=== PATIENT | male | born 1955 | race Two or more races ===

== ENCOUNTER 2023-01-02 13:19 | Inpatient (IN) | payer MEDICARE ==
[2023-01-02 15:54] LABS: Basophils % (A) 0 %; Eosinophils # (A) 0.1 k/uL (0-0.7); Eosinophils % (A) 1 %; HCT 27.7 % (39.0-53.0); HGB 9.4 gm/dL (13.0-17.5); Lymphocytes # (A) 2.4 k/uL (1.0-4.8); Lymphocytes % (A) 22 %; MCH 31.6 pg (25.0-35.0); MCHC 33.9 g/dL (31.0-37.0); MCV 93.3 fL (80.0-100.0); Mean Platelet Volume 8.4; Monocytes # (A) 0.6 k/uL (0-1.0); Monocytes % (A) 5 %; Neutrophils # (A) 7.7 k/uL (1.3-7.7); Neutrophils % (A) 70 %; Platelet Count 400 k/uL (150-450); RBC 2.97 m/uL (4.30-5.90); RDW 14.2 % (11.5-15.5); WBC 10.9 k/uL (3.8-10.6)
--- NOTE | 2023-01-02 15:58 | ED ---
Lower Extremity Injury HPI - General Chief Complaint: Extremity Injury, Lower Stated Complaint: Leg Infection Time Seen by Provider: 01/02/23 15:36 Source: patient Mode of arrival: ambulatory Limitations: no limitations - History of Present Illness Initial Comments: This patient is a 67-year-old man who presents evaluation of his left foot. The patient had been in the hospital with left lower extremity cellulitis. He was released on December 30, to continue taking oral medication. The patient states that he had gone to see his physician on Thursday and the oral antibiotics were stopped. He saw a visiting nurse today who felt that his left ankle ulcer required surgical debridement. The patient has not had fevers at home. No chest pain, dyspnea, palpitations. Onset/Timin -: week(s) Injury: Foot: Left Improves With: nothing Worsens With: nothing Associated Symptoms: swelling Treatments Prior to Arrival: bandage - Related Data Home Medications Medication Instructions Recorded Confirmed Acarbose [Precose] 50 mg PO TID 01/02/23 01/02/23 Aspirin EC [Ecotrin Low Dose] 81 mg PO DAILY 01/02/23 01/02/23 Cetirizine HCl [Zyrtec] 10 mg PO HS 01/02/23 01/02/23 Cholecalciferol [Vitamin D3 (125 125 mcg PO HS 01/02/23 01/02/23 Mcg = 5000 Iu)] Cinnamon Bark [Cinnamon] 500 mg PO BID 01/02/23 01/02/23 Docusate [Colace] 100 mg PO DAILY 01/02/23 01/02/23 Echinacea 760mg Capsule 1 cap PO DAILY 01/02/23 01/02/23 Elderberry Fruit [Elderberry] 350 mg PO HS 01/02/23 01/02/23 Desiree C 500mg Tab 500 mg PO DAILY 01/02/23 01/02/23 Furosemide [Lasix] 40 mg PO DAILY 01/02/23 01/02/23 Goldenseal 400mg Capsule 1 cap PO HS 01/02/23 01/02/23 Lisinopril-Hctz 20-12.5 mg 1 tab PO HS 01/02/23 01/02/23 [Zestoretic 20-12.5] Magnesium Oxide [Magnesium] 500 mg PO HS 01/02/23 01/02/23 Metoprolol Tartrate [Lopressor] 75 mg PO BID 01/02/23 01/02/23 Multivit-Min/FA/Lycopen/Lutein 1 tab PO DAILY 01/02/23 01/02/23 [Centrum Silver Tablet] Potassium Chloride [Klor-Con M10] 10 meq PO BID 01/02/23 01/02/23 Qunol Hitesh Co Q 10 1 tab PO DAILY 01/02/23 01/02/23 Saw [place] 500 mg PO DAILY 01/02/23 01/02/23 Super Beta Prostate Tablet 1 tab PO HS 01/02/23 01/02/23 Thiamine HCl [Vitamin B-1] 250 mg PO DAILY 01/02/23 01/02/23 Ultra [place]-3 935mg 1 cap PO HS 01/02/23 01/02/23 Vitamin B Complex 1 cap PO 01/02/23 01/02/23 Warfarin [Coumadin] 2.5 mg PO [place]@2100 01/02/23 01/02/23 Warfarin [Coumadin] 5 mg PO SUTUWETHFRSA@2100 01/02/23 01/02/23 gemfibroziL [Lopid] 600 mg PO BID 01/02/23 01/02/23 glipiZIDE XL [Glucotrol XL] 5 mg PO DAILY 01/02/23 01/02/23 metFORMIN HCL [Glucophage] 1,000 mg PO HS 01/02/23 01/02/23 polyethylene glycoL 3350 [Miralax] 17 gm PO DAILY PRN 01/02/23 01/02/23 sitaGLIPtin PHOS/metFORMIN HCL 1 tab PO DAILY 01/02/23 01/02/23 [Janumet 50-1,000 mg Tablet] Previous Rx's Medication Instructions Recorded Acetaminophen Tab [Tylenol] 650 mg PO Q6HR PRN tab 01/06/23 Doxycycline Hyclate 100 mg PO Q12H 10 Days #20 tab 01/06/23 Ferrous Sulfate [Iron (65 MG 325 mg PO BID-W/MEALS #60 tab 01/06/23 Elemental)] Pantoprazole [Protonix] 40 mg PO DAILY #30 tab 01/06/23 Allergies Allergy/AdvReac Type Severity Reaction Status Date / Time No Known Allergies Allergy Verified 01/02/23 16:28 Review of Systems ROS Statement: Those systems with pertinent positive or pertinent negative responses have been documented in the HPI. ROS Other: All systems not noted in ROS Statement are negative. Constitutional: Denies: fever, chills Respiratory: Denies: cough, dyspnea Cardiovascular: Denies: chest pain, palpitations Gastrointestinal: Denies: abdominal pain, vomiting Genitourinary: Denies: dysuria Musculoskeletal: Denies: back pain Skin: Reports: as per HPI Neurological: Denies: headache, weakness, numbness Past Medical History Past Medical History: Atrial Fibrillation, Diabetes Mellitus, Hypertension History of Any Multi-Drug Resistant Organisms: None Reported Past Surgical History: No Surgical Hx Reported Past Psychological History: No Psychological Hx Reported Smoking Status: Never smoker Past Alcohol Use History: None Reported Past Drug Use History: None Reported - Past Family History Father Family Medical History: No Reported History Additional Family Medical History / Comment(s): living age 93. healthy Mother Family Medical History: CVA/TIA General Exam Limitations: no limitations General appearance: alert, in no apparent distress Head exam: Present: atraumatic, normocephalic Eye exam: Present: normal appearance. Absent: scleral icterus, conjunctival injection Neck exam: Present: normal inspection Respiratory exam: Present: normal lung sounds bilaterally. Absent: respiratory distress, wheezes, rales, rhonchi, stridor Cardiovascular Exam: Present: regular rate, normal rhythm, normal heart sounds. Absent: systolic murmur, diastolic murmur, rubs, gallop GI/Abdominal exam: Present: soft. Absent: distended, tenderness, guarding, rebound, rigid, mass Extremities exam: Present: other (The patient has some edema of the left ankle and foot. There is an ulcer to the heel aspect of the ankle. There is no purulent discharge.) Neurological exam: Present: alert, motor sensory deficit Skin exam: Present: warm, dry, erythema, other (Stasis changes to the left lower extremity, see above) Course Vital Signs 01/02/23 01/02/23 01/02/23 14:15 15:34 17:45 Temperature 98.2 F 97.9 F 98.2 F Pulse Rate 90 89 85 Respiratory 18 17 17 Rate Blood Pressure 97/64 106/65 114/62 O2 Sat by Pulse 95 97 98 Oximetry 01/02/23 01/02/23 01/02/23 18:28 19:05 20:00 Temperature 98.0 F 97.8 F Pulse Rate 88 83 90 Respiratory 17 17 18 Rate Blood Pressure 105/72 104/63 113/77 O2 Sat by Pulse 98 95 98 Oximetry Medical Decision Making - Medical Decision Making This patient is 67-year-old man with infected left foot ulcer. The labs do reveal presence of continued leukocytosis. The patient currently off of antibiotics with some continued infection will admit to have IV consultation as well as surgery for possible debridement Was pt. sent in by a medical professional or institution (CHAVA Anand, CARPENTRY SUPERVISOR, urgent care, hospital, or shelter...) When possible be specific @ -I patient is sent by visiting nurse Did you speak to anyone other than the patient for history (EMS, parent, family, police, friend...)? What history was obtained from this source @ -[Patient's family did contribute to history Did you review nursing and triage notes (agree or disagree)? Why? @ -[I reviewed and agree with nursing and triage notes] Were old charts reviewed (outside hosp., previous admission, EMS record, old EKG, old radiological studies, urgent care reports/EKG's, shelter records)? Report findings @ -[No old charts were reviewed] Differential Diagnosis (chest pain, altered mental status, abdominal pain women, abdominal pain men, vaginal bleeding, weakness, fever, dyspnea, syncope, headache, dizziness, GI bleed, back pain, seizure, CVA, palpatations, mental health, musculoskeletal)? @ -[Differential diagnosis includes wound infection, cellulitis, vasculitis and other conditions EKG interpreted by me (3pts min.). @ -[As above] X-rays interpreted by me (1pt min.). @ -[None done] CT interpreted by me (1pt min.). @ -[None done] U/S interpreted by me (1pt. min.). @ -[None done] What testing was considered but not performed or refused? (CT, X-rays, U/S, labs)? Why? @ -[None] What meds were considered but not given or refused? Why? @ -[None] Did you discuss the management of the patient with other professionals (professionals i.e. CHAVA Anand, CARPENTRY SUPERVISOR, lab, RT, psych nurse, geriatric social worker, cathode builder, teacher, enforcement safety officer, family caseworker)? Give summary @ -Case is discussed with admitting physician Was smoking cessation discussed for >3mins.? @ -[No] Was critical care preformed (if so, how long)? @ -[No] Were there social determinants of health that impacted care today? How? (Homelessness, low income, unemployed, alcoholism, drug addiction, transportation, low edu. Level, literacy, decrease access to med. care, nursing home, rehab)? @ -[No] Was there de-escalation of care discussed even if they declined (Discuss DNR or withdrawal of care, Hospice)? DNR status @ -[No] What co-morbidities impacted this encounter? (DM, HTN, Smoking, COPD, CAD, Canc er, CVA, ARF, Chemo, Hep., AIDS, mental health diagnosis, sleep apnea, morbid obesity)? @ -[None] Was patient admitted / discharged? Hospital course, mention meds given and route, prescriptions, significant lab abnormalities, going to OR and other pertinent info. @ -[Patient be admitted to have IV antibiotic coverage as well as surgical con sultation for possible debridement Undiagnosed new problem with uncertain prognosis? @ -[No] Drug Therapy requiring intensive monitoring for toxicity (Heparin, Nitro, Insulin, Cardizem)? @ -[No] Were any procedures done? @ -[No] Diagnosis/symptom? @ -[Leg cellulitis versus wound infection Acute, or Chronic, or Acute on Chronic? @ -[Acute Uncomplicated (without systemic symptoms) or Complicated (systemic symptoms)? @ -Uncomplicated Side effects of treatment? @ -[No] Exacerbation, Progression, or Severe Exacerbation? @ -[No] Poses a threat to life or bodily function? How? (Chest pain, [place], [place], pneumonia, PE, COPD, DKA, ARF, appy, cholecystitis, CVA, Diverticulitis, Homicidal, Suicidal, threat to staff... and all critical care pts) @ -[Worsening cellulitis/wound infection may progress to sepsis/ - Lab Data Result diagrams: 01/06/23 05:40 01/05/23 12:49 Lab Results 01/02/23 01/02/23 01/02/23 Range/Units 15:42 15:42 15:42 WBC 10.9 H (3.8-10.6) k/uL RBC 2.97 L (4.30-5.90) m/uL Hgb 9.4 L (13.0-17.5) gm/dL Hct 27.7 L (39.0-53.0) % MCV 93.3 (80.0-100.0) fL MCH 31.6 (25.0-35.0) pg MCHC 33.9 (31.0-37.0) g/dL RDW 14.2 (11.5-15.5) % Plt Count 400 (150-450) k/uL MPV 8.4 Immature Gran % (Auto) % Absolute Nucleated RBC % Neutrophils % 70 % Lymphocytes % 22 % Monocytes % 5 % Eosinophils % 1 % Basophils % 0 % Immature Gran # X 10*3/uL Neutrophils # 7.7 (1.3-7.7) k/uL Lymphocytes # 2.4 (1.0-4.8) k/uL Monocytes # 0.6 (0-1.0) k/uL Eosinophils # 0.1 (0-0.7) k/uL Basophils # 0.0 (0-0.2) k/uL NRBC/100 WBC Diff (0.00-0.01) X 10*3/uL PT (9.0-12.0) sec INR (<1.2) Sodium 135 L (137-145) mmol/L Potassium 4.6 (3.5-5.1) mmol/L Chloride 98 (98-107) mmol/L Carbon Dioxide 23 (22-30) mmol/L Anion Gap 14 mmol/L BUN 66 H (9-20) mg/dL Creatinine 1.23 (0.66-1.25) mg/dL Est GFR (CKD-EPI)AfAm 69 (>60 ml/min/1.73 sqM) Est GFR (CKD-EPI)NonAf 60 (>60 ml/min/1.73 sqM) Glucose 167 H (74-99) mg/dL POC Glucose (mg/dL) (70-110) mg/dL POC Glu Student ID Lactic Ac Sepsis Rflx Plasma Lactic Acid Evans 2.3 H* (0.7-2.0) mmol/L Calcium 10.1 (8.4-10.2) mg/dL Total Bilirubin 0.3 (0.2-1.3) mg/dL AST 21 (17-59) U/L ALT 17 (4-49) U/L Alkaline Phosphatase 71 (38-126) U/L C-Reactive Protein 1.7 H (<1.0) mg/dL Total Protein 7.8 (6.3-8.2) g/dL Albumin 4.0 (3.5-5.0) g/dL 01/02/23 01/02/23 01/02/23 Range/Units 16:13 18:24 20:14 WBC (3.8-10.6) k/uL RBC (4.30-5.90) m/uL Hgb (13.0-17.5) gm/dL Hct (39.0-53.0) % MCV (80.0-100.0) fL MCH (25.0-35.0) pg MCHC (31.0-37.0) g/dL RDW (11.5-15.5) % Plt Count (150-450) k/uL MPV Immature Gran % (Auto) % Absolute Nucleated RBC % Neutrophils % % Lymphocytes % % Monocytes % % Eosinophils % % Basophils % % Immature Gran # X 10*3/uL Neutrophils # (1.3-7.7) k/uL Lymphocytes # (1.0-4.8) k/uL Monocytes # (0-1.0) k/uL Eosinophils # (0-0.7) k/uL Basophils # (0-0.2) k/uL NRBC/100 WBC Diff (0.00-0.01) X 10*3/uL PT 30.7 H (9.0-12.0) sec INR 3.1 H (<1.2) Sodium (137-145) mmol/L Potassium (3.5-5.1) mmol/L Chloride (98-107) mmol/L Carbon Dioxide (22-30) mmol/L Anion Gap mmol/L BUN (9-20) mg/dL Creatinine (0.66-1.25) mg/dL Est GFR (CKD-EPI)AfAm (>60 ml/min/1.73 sqM) Est GFR (CKD-EPI)NonAf (>60 ml/min/1.73 sqM) Glucose (74-99) mg/dL POC Glucose (mg/dL) (70-110) mg/dL POC Glu Student ID Lactic Ac Sepsis Rflx Y Plasma Lactic Acid Evans 1.3 (0.7-2.0) mmol/L Calcium (8.4-10.2) mg/dL Total Bilirubin (0.2-1.3) mg/dL AST (17-59) U/L ALT (4-49) U/L Alkaline Phosphatase (38-126) U/L C-Reactive Protein (<1.0) mg/dL Total Protein (6.3-8.2) g/dL Albumin (3.5-5.0) g/dL 01/02/23 01/03/23 01/03/23 Range/Units 20:46 05:37 05:37 WBC (3.8-10.6) k/uL RBC (4.30-5.90) m/uL Hgb (13.0-17.5) gm/dL Hct (39.0-53.0) % MCV (80.0-100.0) fL MCH (25.0-35.0) pg MCHC (31.0-37.0) g/dL RDW (11.5-15.5) % Plt Count (150-450) k/uL MPV Immature Gran % (Auto) % Absolute Nucleated RBC % Neutrophils % % Lymphocytes % % Monocytes % % Eosinophils % % Basophils % % Immature Gran # X 10*3/uL Neutrophils # (1.3-7.7) k/uL Lymphocytes # (1.0-4.8) k/uL Monocytes # (0-1.0) k/uL Eosinophils # (0-0.7) k/uL Basophils # (0-0.2) k/uL NRBC/100 WBC Diff (0.00-0.01) X 10*3/uL PT 25.8 H (9.0-12.0) sec INR 2.6 H (<1.2) Sodium (137-145) mmol/L Potassium (3.5-5.1) mmol/L Chloride (98-107) mmol/L Carbon Dioxide (22-30) mmol/L Anion Gap mmol/L BUN (9-20) mg/dL Creatinine 1.08 (0.66-1.25) mg/dL Est GFR (CKD-EPI)AfAm 81 (>60 ml/min/1.73 sqM) Est GFR (CKD-EPI)NonAf 70 (>60 ml/min/1.73 sqM) Glucose (74-99) mg/dL POC Glucose (mg/dL) 147 H (70-110) mg/dL POC Glu Student ID Myriam Colindres Lactic Ac Sepsis Rflx Plasma Lactic Acid Evans (0.7-2.0) mmol/L Calcium (8.4-10.2) mg/dL Total Bilirubin (0.2-1.3) mg/dL AST (17-59) U/L ALT (4-49) U/L Alkaline Phosphatase (38-126) U/L C-Reactive Protein (<1.0) mg/dL Total Protein (6.3-8.2) g/dL Albumin (3.5-5.0) g/dL 01/03/23 01/03/23 01/03/23 Range/Units 06:11 12:06 17:11 WBC (3.8-10.6) k/uL RBC (4.30-5.90) m/uL Hgb (13.0-17.5) gm/dL Hct (39.0-53.0) % MCV (80.0-100.0) fL MCH (25.0-35.0) pg MCHC (31.0-37.0) g/dL RDW (11.5-15.5) % Plt Count (150-450) k/uL MPV Immature Gran % (Auto) % Absolute Nucleated RBC % Neutrophils % % Lymphocytes % % Monocytes % % Eosinophils % % Basophils % % Immature Gran # X 10*3/uL Neutrophils # (1.3-7.7) k/uL Lymphocytes # (1.0-4.8) k/uL Monocytes # (0-1.0) k/uL Eosinophils # (0-0.7) k/uL Basophils # (0-0.2) k/uL NRBC/100 WBC Diff (0.00-0.01) X 10*3/uL PT (9.0-12.0) sec INR (<1.2) Sodium (137-145) mmol/L Potassium (3.5-5.1) mmol/L Chloride (98-107) mmol/L Carbon Dioxide (22-30) mmol/L Anion Gap mmol/L BUN (9-20) mg/dL Creatinine (0.66-1.25) mg/dL Est GFR (CKD-EPI)AfAm (>60 ml/min/1.73 sqM) Est GFR (CKD-EPI)NonAf (>60 ml/min/1.73 sqM) Glucose (74-99) mg/dL POC Glucose (mg/dL) 108 108 130 H (70-110) mg/dL POC Glu Student ID Carrier, Myriammelina Emerson, Rajwinder Emerson, Rajwinder Lactic Ac Sepsis Rflx Plasma Lactic Acid Evans (0.7-2.0) mmol/L Calcium (8.4-10.2) mg/dL Total Bilirubin (0.2-1.3) mg/dL AST (17-59) U/L ALT (4-49) U/L Alkaline Phosphatase (38-126) U/L C-Reactive Protein (<1.0) mg/dL Total Protein (6.3-8.2) g/dL Albumin (3.5-5.0) g/dL 01/03/23 01/04/23 01/04/23 Range/Units 20:16 05:24 05:24 WBC (3.8-10.6) k/uL RBC (4.30-5.90) m/uL Hgb (13.0-17.5) gm/dL Hct (39.0-53.0) % MCV (80.0-100.0) fL MCH (25.0-35.0) pg MCHC (31.0-37.0) g/dL RDW (11.5-15.5) % Plt Count (150-450) k/uL MPV Immature Gran % (Auto) % Absolute Nucleated RBC % Neutrophils % % Lymphocytes % % Monocytes % % Eosinophils % % Basophils % % Immature Gran # X 10*3/uL Neutrophils # (1.3-7.7) k/uL Lymphocytes # (1.0-4.8) k/uL Monocytes # (0-1.0) k/uL Eosinophils # (0-0.7) k/uL Basophils # (0-0.2) k/uL NRBC/100 WBC Diff (0.00-0.01) X 10*3/uL PT 21.8 H (9.0-12.0) sec INR 2.2 H (<1.2) Sodium 140 (137-145) mmol/L Potassium 5.2 H (3.5-5.1) mmol/L Chloride 106 (98-107) mmol/L Carbon Dioxide 27 (22-30) mmol/L Anion Gap 7 mmol/L BUN 40 H (9-20) mg/dL Creatinine 1.09 (0.66-1.25) mg/dL Est GFR (CKD-EPI)AfAm 80 (>60 ml/min/1.73 sqM) Est GFR (CKD-EPI)NonAf 69 (>60 ml/min/1.73 sqM) Glucose 77 (74-99) mg/dL POC Glucose (mg/dL) 156 H (70-110) mg/dL POC Glu Student ID Carrier, Myriam Lactic Ac Sepsis Rflx Plasma Lactic Acid Evans (0.7-2.0) mmol/L Calcium 9.5 (8.4-10.2) mg/dL Total Bilirubin (0.2-1.3) mg/dL AST (17-59) U/L ALT (4-49) U/L Alkaline Phosphatase (38-126) U/L C-Reactive Protein (<1.0) mg/dL Total Protein (6.3-8.2) g/dL Albumin (3.5-5.0) g/dL 01/04/23 01/04/23 01/04/23 Range/Units 05:24 06:09 11:56 WBC 12.54 H (3.8-10.6) k/uL RBC 2.35 L (4.30-5.90) m/uL Hgb 7.3 L (13.0-17.5) gm/dL Hct 23.5 L (39.0-53.0) % MCV 100.0 H (80.0-100.0) fL MCH 31.1 (25.0-35.0) pg MCHC 31.1 L (31.0-37.0) g/dL RDW 14.6 H (11.5-15.5) % Plt Count 354 (150-450) k/uL MPV 11.2 Immature Gran % (Auto) 1.00 % Absolute Nucleated RBC 0.30 % Neutrophils % 63.1 % Lymphocytes % 23.2 % Monocytes % 8.1 % Eosinophils % 4.1 % Basophils % 0.5 % Immature Gran # 0.12 X 10*3/uL Neutrophils # 7.92 H (1.3-7.7) k/uL Lymphocytes # 2.91 (1.0-4.8) k/uL Monocytes # 1.02 H (0-1.0) k/uL Eosinophils # 0.51 H (0-0.7) k/uL Basophils # 0.06 (0-0.2) k/uL NRBC/100 WBC Diff 0.04 H (0.00-0.01) X 10*3/uL PT (9.0-12.0) sec INR (<1.2) Sodium (137-145) mmol/L Potassium (3.5-5.1) mmol/L Chloride (98-107) mmol/L Carbon Dioxide (22-30) mmol/L Anion Gap mmol/L BUN (9-20) mg/dL Creatinine (0.66-1.25) mg/dL Est GFR (CKD-EPI)AfAm (>60 ml/min/1.73 sqM) Est GFR (CKD-EPI)NonAf (>60 ml/min/1.73 sqM) Glucose (74-99) mg/dL POC Glucose (mg/dL) 85 123 H (70-110) mg/dL POC Glu Student ID Carrier, Rajwinder Jon Lactic Ac Sepsis Rflx Plasma Lactic Acid Evans (0.7-2.0) mmol/L Calcium (8.4-10.2) mg/dL Total Bilirubin (0.2-1.3) mg/dL AST (17-59) U/L ALT (4-49) U/L Alkaline Phosphatase (38-126) U/L C-Reactive Protein (<1.0) mg/dL Total Protein (6.3-8.2) g/dL Albumin (3.5-5.0) g/dL Disposition Clinical Impression: Cellulitis of foot Disposition: ADMITTED IP TO THIS HOSP Condition: Good Is patient prescribed a controlled substance at d/c from ED?: No
[2023-01-02] MEDS ORDERED: SODIUM CHLORIDE 0.9% 1,000 ML IV STA (16:17)
[2023-01-02 16:39] LABS: ALT 17 U/L (4-49); AST 21 U/L (17-59); African American GFR (CKD) 69 (>60 ml/min/1.73 sqM); Alkaline Phosphatase 71 U/L (38-126); Anion Gap 14 mmol/L; Blood Urea Nitrogen 66 mg/dL (9-20); C Reactive Protein 1.7 mg/dL (<1.0); Calcium 10.1 mg/dL (8.4-10.2); Carbon Dioxide 23 mmol/L (22-30); Chloride 98 mmol/L (98-107); Glucose 167 mg/dL (74-99); Non-African American GFR(CKD) 60 (>60 ml/min/1.73 sqM); Potassium 4.6 mmol/L (3.5-5.1); Sodium 135 mmol/L (137-145); Total Bilirubin 0.3 mg/dL (0.2-1.3); Total Protein 7.8 g/dL (6.3-8.2)
[2023-01-02] MEDS ORDERED: ACETAMINOPHEN TAB 325 MG TAB PO PRN (18:13)
[2023-01-02] MEDS ORDERED: NALOXONE 0.4 MG/ML 1 ML VIAL IV PRN (18:13)
[2023-01-02] MEDS: SODIUM CHLORIDE 0.9% 1,000 ML IV SCH (18:21)
[2023-01-02] MEDS ORDERED: VANCOMYCIN IV PER PHARMACY 1 EACH MISC MISCELLANE PRN (19:23)
[2023-01-02] MEDS ORDERED: VANCOMYCIN 1,750 MG in SODIUM CHLORIDE 0.9% 500 ML 500 ML IVPB SCH (19:30)
[2023-01-02] MEDS ORDERED: VANCOMYCIN 1,750 MG in SODIUM CHLORIDE 0.9% 500 ML 500 ML IVPB ONE (19:32)
[2023-01-02] MEDS: POTASSIUM CHLORIDE ER 10 MEQ TAB.ER.PRT PO SCH (20:17)
[2023-01-02] MEDS: MAGNESIUM OXIDE 400 MG TAB PO SCH (20:17)
[2023-01-02] MEDS: metFORMIN 500 MG TAB PO SCH (20:17)
[2023-01-02] MEDS: METOPROLOL TARTRATE 25 MG TAB PO SCH (20:17)
[2023-01-02] MEDS: FAMOTIDINE 20 MG TAB PO SCH (20:17)
[2023-01-02 20:28] LABS: INR 3.1 (<1.2); Prothrombin Time 30.7 sec (9.0-12.0)
[2023-01-02] MEDS ORDERED: WARFARIN 0.5 MG TAB PO ONE (20:45)
[2023-01-02 20:48] LABS: Glucose,Whole Blood 147 mg/dL (70-110)
[2023-01-02] MEDS ORDERED: WARFARIN 5 MG TAB PO SCH (21:00)
[2023-01-02] MEDS: LISINOPRIL-HCTZ 20-12.5 MG 1 EACH TAB PO SCH (22:11)
[2023-01-03 06:13] LABS: Glucose,Whole Blood 108 mg/dL (70-110)
[2023-01-03 06:22] LABS: INR 2.6 (<1.2); Prothrombin Time 25.8 sec (9.0-12.0)
[2023-01-03 06:31] LABS: African American GFR (CKD) 81 (>60 ml/min/1.73 sqM); Non-African American GFR(CKD) 70 (>60 ml/min/1.73 sqM)
[2023-01-03] MEDS: SODIUM CHLORIDE 0.9% 1,000 ML IV SCH (09:13)
[2023-01-03] MEDS: FAMOTIDINE 20 MG TAB PO SCH ×2 (09:14→21:04)
[2023-01-03] MEDS: POTASSIUM CHLORIDE ER 10 MEQ TAB.ER.PRT PO SCH ×2 (09:14→21:04)
[2023-01-03] MEDS: FENOFIBRATE 160 MG TAB PO SCH (09:14)
[2023-01-03] MEDS: ASPIRIN 81 MG PO SCH (09:14)
[2023-01-03] MEDS: DOCUSATE 100 MG CAP PO SCH (09:14)
[2023-01-03] MEDS: FUROSEMIDE 40 MG TAB PO SCH (09:15)
[2023-01-03] MEDS: glipiZIDE 5 MG TAB PO SCH (09:15)
[2023-01-03] MEDS: METOPROLOL TARTRATE 25 MG TAB PO SCH ×2 (09:15→21:04)
[2023-01-03] MEDS: LINAGLIPTIN 5 MG TABLET PO SCH (09:16)
[2023-01-03] MEDS: metFORMIN 500 MG TAB PO SCH ×2 (09:16→21:03)
--- NOTE | 2023-01-03 11:29 | P.GSCN ---
History of Present Illness Consult date: 01/03/23 Reason for Consult: Left lower extremity leg ulcer History of present illness: This a 67-year-old male his with history of left lower leg cellulitis. Patient developed an ulcer on his left medial ankle. Past Medical History Past Medical History: Atrial Fibrillation, Diabetes Mellitus, Hypertension History of Any Multi-Drug Resistant Organisms: None Reported Past Surgical History: No Surgical Hx Reported Past Psychological History: No Psychological Hx Reported Smoking Status: Never smoker Past Alcohol Use History: None Reported Past Drug Use History: None Reported - Past Family History Father Family Medical History: No Reported History Additional Family Medical History / Comment(s): living age 93. healthy Mother Family Medical History: CVA/TIA Medications and Allergies Home Medications Medication Instructions Recorded Confirmed Type Acarbose [Precose] 50 mg PO TID 01/02/23 01/02/23 History Aspirin EC [Ecotrin Low Dose] 81 mg PO DAILY 01/02/23 01/02/23 History Cetirizine HCl [Zyrtec] 10 mg PO HS 01/02/23 01/02/23 History Cholecalciferol [Vitamin D3 (125 125 mcg PO HS 01/02/23 01/02/23 History Mcg = 5000 Iu)] Cinnamon Bark [Cinnamon] 500 mg PO BID 01/02/23 01/02/23 History Docusate [Colace] 100 mg PO DAILY 01/02/23 01/02/23 History Echinacea 760mg Capsule 1 cap PO DAILY 01/02/23 01/02/23 History Elderberry Fruit [Elderberry] 350 mg PO HS 01/02/23 01/02/23 History Desiree C 500mg Tab 500 mg PO DAILY 01/02/23 01/02/23 History Furosemide [Lasix] 40 mg PO DAILY 01/02/23 01/02/23 History Goldenseal 400mg Capsule 1 cap PO HS 01/02/23 01/02/23 History Lisinopril-Hctz 20-12.5 mg 1 tab PO HS 01/02/23 01/02/23 History [Zestoretic 20-12.5] Magnesium Oxide [Magnesium] 500 mg PO HS 01/02/23 01/02/23 History Metoprolol Tartrate [Lopressor] 75 mg PO BID 01/02/23 01/02/23 History Multivit-Min/FA/Lycopen/Lutein 1 tab PO DAILY 01/02/23 01/02/23 History [Centrum Silver Tablet] Potassium Chloride [Klor-Con M10] 10 meq PO BID 01/02/23 01/02/23 History Qunol Hitesh Co Q 10 1 tab PO DAILY 01/02/23 01/02/23 History Saw [place] 500 mg PO DAILY 01/02/23 01/02/23 History Super Beta Prostate Tablet 1 tab PO HS 01/02/23 01/02/23 History Thiamine HCl [Vitamin B-1] 250 mg PO DAILY 01/02/23 01/02/23 History Ultra [place]-3 935mg 1 cap PO HS 01/02/23 01/02/23 History Vitamin B Complex 1 cap PO HS 01/02/23 01/02/23 History Warfarin [Coumadin] 2.5 mg PO MO@2100 01/02/23 01/02/23 History Warfarin [Coumadin] 5 mg PO SUTUWETHFRSA@2100 01/02/23 01/02/23 History gemfibroziL [Lopid] 600 mg PO BID 01/02/23 01/02/23 History glipiZIDE XL [Glucotrol XL] 2.5 mg PO HS 01/02/23 01/02/23 History glipiZIDE XL [Glucotrol Xl] 5 mg PO DAILY 01/02/23 01/02/23 History metFORMIN HCL [Glucophage] 1,000 mg PO HS 01/02/23 01/02/23 History polyethylene glycoL 3350 [Miralax] 17 gm PO DAILY PRN 01/02/23 01/02/23 History sitaGLIPtin PHOS/metFORMIN HCL 1 tab PO DAILY 01/02/23 01/02/23 History [Janumet 50-1,000 mg Tablet] Allergies Allergy/AdvReac Type Severity Reaction Status Date / Time No Known Allergies Allergy Verified 01/02/23 16:28 Surgical - Exam Vital Signs Temp Pulse Resp BP Pulse Ox 98.2 F 90 18 97/64 95 01/02/23 14:15 01/02/23 14:15 01/02/23 14:15 01/02/23 14:15 01/02/23 14:15 - General well developed, well nourished, no distress - Eyes PERRL - ENT normal pinna - Neck no masses - Respiratory normal expansion - Cardiovascular Rhythm: regular - Abdomen Abdomen: soft, non tender - Integumentary Ulcer left medial ankle. The ulcer is dry. Results - Labs 01/02/23 15:42 01/03/23 05:37 Abnormal Lab Results - Last 24 Hours (Table) 01/02/23 01/02/23 01/02/23 Range/Units 15:42 15:42 15:42 WBC 10.9 H (3.8-10.6) k/uL RBC 2.97 L (4.30-5.90) m/uL Hgb 9.4 L (13.0-17.5) gm/dL Hct 27.7 L (39.0-53.0) % PT (9.0-12.0) sec INR (<1.2) Sodium 135 L (137-145) mmol/L BUN 66 H (9-20) mg/dL Glucose 167 H (74-99) mg/dL POC Glucose (mg/dL) (70-110) mg/dL Plasma Lactic Acid Evans 2.3 H* (0.7-2.0) mmol/L C-Reactive Protein 1.7 H (<1.0) mg/dL 01/02/23 01/02/23 01/03/23 Range/Units 20:14 20:46 05:37 WBC (3.8-10.6) k/uL RBC (4.30-5.90) m/uL Hgb (13.0-17.5) gm/dL Hct (39.0-53.0) % PT 30.7 H 25.8 H (9.0-12.0) sec INR 3.1 H 2.6 H (<1.2) Sodium (137-145) mmol/L BUN (9-20) mg/dL Glucose (74-99) mg/dL POC Glucose (mg/dL) 147 H (70-110) mg/dL Plasma Lactic Acid Evans (0.7-2.0) mmol/L C-Reactive Protein (<1.0) mg/dL Diabetes panel 01/02/23 01/03/23 Range/Units 15:42 05:37 Sodium 135 L (137-145) mmol/L Potassium 4.6 (3.5-5.1) mmol/L Chloride 98 (98-107) mmol/L Carbon Dioxide 23 (22-30) mmol/L BUN 66 H (9-20) mg/dL Creatinine 1.23 1.08 (0.66-1.25) mg/dL Glucose 167 H (74-99) mg/dL Calcium 10.1 (8.4-10.2) mg/dL AST 21 (17-59) U/L ALT 17 (4-49) U/L Alkaline Phosphatase 71 (38-126) U/L Total Protein 7.8 (6.3-8.2) g/dL Albumin 4.0 (3.5-5.0) g/dL Calcium panel 01/02/23 Range/Units 15:42 Calcium 10.1 (8.4-10.2) mg/dL Albumin 4.0 (3.5-5.0) g/dL Pituitary panel 01/02/23 01/03/23 Range/Units 15:42 05:37 Sodium 135 L (137-145) mmol/L Potassium 4.6 (3.5-5.1) mmol/L Chloride 98 (98-107) mmol/L Carbon Dioxide 23 (22-30) mmol/L BUN 66 H (9-20) mg/dL Creatinine 1.23 1.08 (0.66-1.25) mg/dL Glucose 167 H (74-99) mg/dL Calcium 10.1 (8.4-10.2) mg/dL Adrenal panel 01/02/23 01/03/23 Range/Units 15:42 05:37 Sodium 135 L (137-145) mmol/L Potassium 4.6 (3.5-5.1) mmol/L Chloride 98 (98-107) mmol/L Carbon Dioxide 23 (22-30) mmol/L BUN 66 H (9-20) mg/dL Creatinine 1.23 1.08 (0.66-1.25) mg/dL Glucose 167 H (74-99) mg/dL Calcium 10.1 (8.4-10.2) mg/dL Total Bilirubin 0.3 (0.2-1.3) mg/dL AST 21 (17-59) U/L ALT 17 (4-49) U/L Alkaline Phosphatase 71 (38-126) U/L Total Protein 7.8 (6.3-8.2) g/dL Albumin 4.0 (3.5-5.0) g/dL Assessment and Plan Assessment: Left lower extremity ulcer. Recommend vascular surgery consultation for possible debridement and further care.
[2023-01-03 12:08] LABS: Glucose,Whole Blood 108 mg/dL (70-110)
[2023-01-03] MEDS: VANCOMYCIN 1,750 MG in SODIUM CHLORIDE 0.9% 500 ML 500 ML IVPB SCH (13:10)
--- NOTE | 2023-01-03 13:39 | US ---
EXAMINATION TYPE: US venous doppler duplex LE LT DATE OF EXAM: 01/03/2023 12:24 PM Exam done portable COMPARISON: NONE CLINICAL INDICATION: Male, 67 years old with history of r/o DVT; Left lower leg swelling, patient on blood thinners SIDE PERFORMED: Left TECHNIQUE: The lower extremity deep venous system is examined utilizing real time linear array sonog kiersten with graded compression, doppler sonography and color-flow sonography. VESSELS IMAGED: Common Femoral Vein Deep Femoral Vein Greater Saphenous Vein * Femoral Vein Popliteal Vein Small Saphenous Vein * Proximal Calf Veins (* superficial vessels) Grayscale, color doppler, spectral doppler imaging performed of the deep veins of the left lower extr emity. There is normal flow, compressibility, vascular waveforms. Left Leg: Appears negative for DVT IMPRESSION: No ultrasound evidence for deep venous thrombosis of the left lower extremity.
--- NOTE | 2023-01-03 14:42 | HP ---
HISTORY AND PHYSICAL CHIEF COMPLAINT: Left lower leg ulcer. HISTORY OF PRESENT ILLNESS: This is a 67-year-old gentleman with past medical history of multiple medical problems including atrial fibrillation, diabetes type 2, was admitted to [facility] with complaints of left lower extremity cellulitis. The patient was apparently in [facility] for few days, antibiotics are recently stopped because of increasing pain, swelling, and skin abnormalities. The patient is admitted for further evaluation treatment. Dr. Clemente has seen the patient and recommended vascular surgery consultation and possible debridement also. There is no history of any fever, rigors, or chills at this time. PAST MEDICAL HISTORY: Reviewed atrial ablation, diabetes mellitus, rest of the chart is also reviewed. HOME MEDICATIONS: Reviewed include Coumadin, dose and rest of medications reviewed. ALLERGIES: None. FAMILY HISTORY: No history of heart disease or strokes in the family. SOCIAL HISTORY: No history of smoking or alcohol. REVIEW OF SYSTEMS: A 14-point review is negative except as mentioned earlier. PHYSICAL EXAMINATION: VITAL SIGNS: Pulse is 73, blood pressure 110/60, respirations 20. HEENT: Conjunctivae normal. NECK: No JVD. CARDIOVASCULAR: S1, S2 muffled. RESPIRATIONS: Clear to auscultation. ABDOMEN: Soft, nontender. EXTREMITIES: Left leg pain, swelling, and erythema and evidence of cellulitis. NERVOUS SYSTEM: No focal deficits. skin no rash joints no active arthropathy. LABORATORY DATA: Reviewed. ASSESSMENT: 1. Acute left lower lobe cellulitis with failure of outpatient treatment. 2. Increased WBC. 3. Atrial fibrillation. 4. Diabetes mellitus, type 2. 5. Hypertension. 6. Multiple medical issues. RECOMMENDATIONS: This 67-year-old gentleman presented with multiple complex medical issues. We will initiate broad-spectrum IV antibiotics. The patient is started on vancomycin, had Unasyn also, obtained cultures. Infectious Disease evaluation. Vascular surgery and surgical evaluation for possible debridement. We will continue to monitor blood sugars and otherwise resume the home medications once they are confirmed. Prognosis guarded because of multiple complex medical issues. Further recommendations to follow, see orders for details. Discussed with the patient at length and understands and agrees. The patient is currently stable but overall prognosis is guarded. We will also recommend to monitor, hold the Coumadin for now in anticipation of possible debridement and further recommendations to follow. MMODL / IJN: [id number] /
--- NOTE | 2023-01-03 15:55 | P.CRDCN ---
History of Present Illness Consult date: 01/03/23 History of present illness: HISTORY OF PRESENTING ILLNESS Patient is a 67-year-old male with past medical history of chronic atrial fibrillation on warfarin therapy for anticoagulation. He is known to Dr. Dorado. He has diabetes type 2 and was admitted to the hospital because of left lower extremity swelling and worsening cellulitis. Patient was apparently at [facility] few days ago for similar complaints. Cardiology was consulted she was noticed to be in atrial fibrillation on admission. He denies any symptoms of chest pain or chest pressure with activity or rest. He denies any shortness of breath or difficulty breathing with activity or rest. He denies any orthopnea or paroxysmal nocturnal dyspnea. He denies any palpitations or lightheadedness or dizziness His EKG from admission shows atrial fibrillation with rate controlled response. Heart rate 73 beats a minute. Incomplete left bundle-branch block. This is not changed from prior examination. Ilower extremity doppler is negative for DVT BP 100/62, heart rate 75 beats. Home cardiac medications, aspirin, Benadryl 75 mg twice a day, warfarin, Lasix 40 mg daily lisinopril 20, HCTZ 12.5 REVIEW OF SYSTEMS At the time of my exam: CONSTITUTIONAL: Denies fever or chills. CARDIOVASCULAR: Denies chest pain, shortness of breath, orthopnea, PND or p alpitations. RESPIRATORY: Denies cough. GASTROINTESTINAL: Denies abdominal pain, diarrhea, constipation, nausea or vomiting. MUSCULOSKELETAL: left lower swelling and pain NEUROLOGIC: Denies numbness, tingling or weakness. ENDOCRINE: Denies fatigue, weight change, polydipsia or polyurina. GENITOURINARY: Denies burning, hematuria or urgency with micturation. HEMATOLOGIC: Denies history of anemia or bleeding. PHYSICAL EXAMINATION Vital signs reviewed. CONSTITUTIONAL: No apparent distress. Morbidly obese HEENT: Head is normocephalic. Pupils are equal, round. Sclerae anicteric. Mucous membranes of the mouth are moist. No JVD. No carotid bruit. CHEST EXAMINATION: Lungs are clear to auscultation. No chest wall tenderness is noted on palpation or with deep breathing. HEART EXAMINATION: Irregularly irregular S1, S2 heard. No murmurs, gallops or rub. ABDOMEN: Soft, nontender. Positive bowel sounds. EXTREMITIES: 2+ peripheral pulses, no lower extremity edema and no calf tenderness. NEUROLOGIC EXAMINATION: Patient is awake, alert and oriented x3. ASSESSMENT Lower extremity cellulitis Chronic atrial fibrillation. On anticoagulation with warfarin Chronic heart failure with preserved ejection fraction PLAN Continue current cardiac medications without any changes Continue IV antibiotics as per primary team Wound care and peripheral vascular evaluation as per surgery team and primary team No further cardiac testing needed at this time Past Medical History Past Medical History: Atrial Fibrillation, Diabetes Mellitus, Hypertension History of Any Multi-Drug Resistant Organisms: None Reported Past Surgical History: No Surgical Hx Reported Past Psychological History: No Psychological Hx Reported Smoking Status: Never smoker Past Alcohol Use History: None Reported Past Drug Use History: None Reported - Past Family History Father Family Medical History: No Reported History Additional Family Medical History / Comment(s): living age 93. healthy Mother Family Medical History: CVA/TIA Medications and Allergies Home Medications Medication Instructions Recorded Confirmed Type Acarbose [Precose] 50 mg PO TID 01/02/23 01/02/23 History Aspirin EC [Ecotrin Low Dose] 81 mg PO DAILY 01/02/23 01/02/23 History Cetirizine HCl [Zyrtec] 10 mg PO HS 01/02/23 01/02/23 History Cholecalciferol [Vitamin D3 (125 125 mcg PO HS 01/02/23 01/02/23 History Mcg = 5000 Iu)] Cinnamon Bark [Cinnamon] 500 mg PO BID 01/02/23 01/02/23 History Docusate [Colace] 100 mg PO DAILY 01/02/23 01/02/23 History Echinacea 760mg Capsule 1 cap PO DAILY 01/02/23 01/02/23 History Elderberry Fruit [Elderberry] 350 mg PO HS 01/02/23 01/02/23 History Desiree C 500mg Tab 500 mg PO DAILY 01/02/23 01/02/23 History Furosemide [Lasix] 40 mg PO DAILY 01/02/23 01/02/23 History Goldenseal 400mg Capsule 1 cap PO HS 01/02/23 01/02/23 History Lisinopril-Hctz 20-12.5 mg 1 tab PO HS 01/02/23 01/02/23 History [Zestoretic 20-12.5] Magnesium Oxide [Magnesium] 500 mg PO HS 01/02/23 01/02/23 History Metoprolol Tartrate [Lopressor] 75 mg PO BID 01/02/23 01/02/23 History Multivit-Min/FA/Lycopen/Lutein 1 tab PO DAILY 01/02/23 01/02/23 History [Centrum Silver Tablet] Potassium Chloride [Klor-Con M10] 10 meq PO BID 01/02/23 01/02/23 History Qunol Hitesh Co Q 10 1 tab PO DAILY 01/02/23 01/02/23 History Saw Corn 500 mg PO DAILY 01/02/23 01/02/23 History Super Beta Prostate Tablet 1 tab PO HS 01/02/23 01/02/23 History Thiamine HCl [Vitamin B-1] 250 mg PO DAILY 01/02/23 01/02/23 History Ultra [place]-3 935mg 1 cap PO HS 01/02/23 01/02/23 History Vitamin B Complex 1 cap PO HS 01/02/23 01/02/23 History Warfarin [Coumadin] 2.5 mg PO MO@2100 01/02/23 01/02/23 History Warfarin [Coumadin] 5 mg PO SUTUWETHFRSA@2100 01/02/23 01/02/23 History gemfibroziL [Lopid] 600 mg PO BID 01/02/23 01/02/23 History glipiZIDE XL [Glucotrol XL] 2.5 mg PO HS 01/02/23 01/02/23 History glipiZIDE XL [Glucotrol Xl] 5 mg PO DAILY 01/02/23 01/02/23 History metFORMIN HCL [Glucophage] 1,000 mg PO HS 01/02/23 01/02/23 History polyethylene glycoL 3350 [Miralax] 17 gm PO DAILY PRN 01/02/23 01/02/23 History sitaGLIPtin PHOS/metFORMIN HCL 1 tab PO DAILY 01/02/23 01/02/23 History [Janumet 50-1,000 mg Tablet] Allergies Allergy/AdvReac Type Severity Reaction Status Date / Time No Known Allergies Allergy Verified 01/02/23 16:28 Physical Exam Vitals: Vital Signs Temp Pulse Pulse Resp BP BP Pulse Ox 01/03/23 14:18 98.3 F 75 16 100/62 96 01/03/23 07:00 98.1 F 93 16 119/76 95 01/03/23 00:05 97.7 F 73 20 110/68 96 01/02/23 20:35 98.2 F 94 14 119/77 98 01/02/23 20:00 97.8 F 90 18 113/77 98 01/02/23 19:05 98.0 F 83 17 104/63 95 01/02/23 18:28 88 17 105/72 98 01/02/23 17:45 98.2 F 85 17 114/62 98 Intake and Output 01/03/23 01/03/23 01/03/23 06:59 14:59 22:59 Intake Total 118 Balance 118 Intake: Oral 118 Other: # Voids 4 2 Results 01/02/23 15:42 01/03/23 05:37 Cardiac Enzymes 01/02/23 Range/Units 15:42 AST 21 (17-59) U/L Coagulation 01/02/23 01/03/23 Range/Units 20:14 05:37 PT 30.7 H 25.8 H (9.0-12.0) sec CBC 01/02/23 Range/Units 15:42 WBC 10.9 H (3.8-10.6) k/uL RBC 2.97 L (4.30-5.90) m/uL Hgb 9.4 L (13.0-17.5) gm/dL Hct 27.7 L (39.0-53.0) % Plt Count 400 (150-450) k/uL Comprehensive Metabolic Panel 01/02/23 01/03/23 Range/Units 15:42 05:37 Sodium 135 L (137-145) mmol/L Potassium 4.6 (3.5-5.1) mmol/L Chloride 98 (98-107) mmol/L Carbon Dioxide 23 (22-30) mmol/L BUN 66 H (9-20) mg/dL Creatinine 1.23 1.08 (0.66-1.25) mg/dL Glucose 167 H (74-99) mg/dL Calcium 10.1 (8.4-10.2) mg/dL AST 21 (17-59) U/L ALT 17 (4-49) U/L Alkaline Phosphatase 71 (38-126) U/L Total Protein 7.8 (6.3-8.2) g/dL Albumin 4.0 (3.5-5.0) g/dL Current Medications Generic Name Dose Route Start Last Admin Trade Name Freq PRN Reason Stop Dose Admin Acarbose 50 mg 01/03/23 16:00 Acarbose 25 Mg Tab PO TID HEATHER Acetaminophen 650 mg 01/02/23 18:13 Acetaminophen Tab 325 Mg Tab PO Q6HR PRN Mild Pain or Fever > 100.5 Aspirin 81 mg 01/03/23 09:00 01/03/23 09:14 Aspirin 81 Mg PO 81 mg DAILY HEATHER Administration Cholecalciferol 125 mcg 01/03/23 21:00 Cholecalciferol 125 Mcg (5000 Iu) Tablet PO HS HEATHER Docusate Sodium 100 mg 01/03/23 09:00 01/03/23 09:14 Docusate 100 Mg Cap PO 100 mg DAILY HEATHER Administration Famotidine 20 mg 01/02/23 21:00 01/03/23 09:14 Famotidine 20 Mg Tab PO 20 mg BID HEATHER Administration Fenofibrate 160 mg 01/03/23 09:00 01/03/23 09:14 Fenofibrate 160 Mg Tab PO 160 mg DAILY HEATHER Administration Furosemide 40 mg 01/03/23 09:00 01/03/23 09:15 Furosemide 40 Mg Tab PO Not Given DAILY HEATHER Glipizide 2.5 mg 01/02/23 21:00 01/02/23 22:11 Glipizide 2.5 Mg Tab PO 2.5 mg HS HEATHER Administration Glipizide 5 mg 01/03/23 09:00 01/03/23 09:15 Glipizide 5 Mg Tab PO 5 mg DAILY HEATHER Administration Lisinopril/HCTZ 1 each 01/02/23 21:00 01/02/23 22:11 Lisinopril-Hctz 20-12.5 Mg 1 Each Tab PO 1 each HS HEATHER Administration Vancomycin HCl 1,750 mg/ 500 mls @ 167 mls/hr 01/03/23 12:00 01/03/23 13:10 Sodium Chloride IVPB 167 mls/hr Q16H HEATHER Administration Linagliptin 5 mg 01/03/23 09:00 01/03/23 09:16 Linagliptin 5 Mg Tablet PO 5 mg DAILY HEATHER Administration Loratadine 10 mg 01/03/23 21:00 Loratadine 10 Mg Tab PO HS HEATHER Magnesium Oxide 400 mg 01/02/23 21:00 01/02/23 20:17 Magnesium Oxide 400 Mg Tab PO 400 mg HS HEATHER Administration Metformin HCl 1,000 mg 01/02/23 21:00 01/02/23 20:17 Metformin 500 Mg Tab PO 1,000 mg HS HEATHER Administration Metformin HCl 1,000 mg 01/03/23 09:00 01/03/23 09:16 Metformin 500 Mg Tab PO 1,000 mg DAILY HEATHER Administration Metoprolol Tartrate 75 mg 01/02/23 21:00 01/03/23 09:15 Metoprolol Tartrate 25 Mg Tab PO 75 mg BID HEATHER Administration Naloxone HCl 0.2 mg 01/02/23 18:13 Naloxone 0.4 Mg/Ml 1 Ml Vial IV Q2M PRN Opioid Reversal Polyethylene Glycol 17 gm 01/02/23 19:24 Polyethylene Glycol 3350 17 Gm Powd.Pack PO DAILY PRN Constipation Potassium Chloride 10 meq 01/02/23 21:00 01/03/23 09:14 Potassium Chloride Er 10 Meq Tab.Er.Prt PO 10 meq BID HEATHER Administration Thiamine HCl 250 mg 01/04/23 09:00 Thiamine 100 Mg Tab PO DAILY HEATHER Warfarin Sodium 5 mg 01/03/23 18:00 Warfarin 5 Mg Tab PO 01/03/23 18:01 ONCE@1800 ONE Intake and Output 01/03/23 01/03/23 01/03/23 06:59 14:59 22:59 Intake Total 118 Balance 118 Intake: Oral 118 Other: # Voids 4 2 01/02/23 15:42 01/03/23 05:37
[2023-01-03 17:12] LABS: Glucose,Whole Blood 130 mg/dL (70-110)
[2023-01-03] MEDS: ACARBOSE 25 MG TAB PO SCH ×2 (17:42→21:04)
[2023-01-03] MEDS ORDERED: WARFARIN 5 MG TAB PO ONE (18:00)
[2023-01-03 20:17] LABS: Glucose,Whole Blood 156 mg/dL (70-110)
[2023-01-03] MEDS ORDERED: NON FORMULARY DRUG (Vitamin B Complex [Vitamin B Complex] 1 EACH Capsule) PO SCH (21:00)
[2023-01-03] MEDS: CHOLECALCIFEROL 125 MCG (5000 IU) TABLET PO SCH (21:03)
[2023-01-03] MEDS: LORATADINE 10 MG TAB PO SCH (21:04)
[2023-01-03] MEDS: LISINOPRIL-HCTZ 20-12.5 MG 1 EACH TAB PO SCH (21:04)
[2023-01-03] MEDS: MAGNESIUM OXIDE 400 MG TAB PO SCH (21:04)
--- NOTE | 2023-01-03 22:47 | P.CONS ---
History of Present Illness - Reason for Consult Consult date: 01/03/23 Left foot infection Requesting physician: Marianne Finley - Chief Complaint Left ankle ulcer and cellulitis x days - History of Present Illness Patient is a 67-year male with a past medical history pertinent for diabetes mellitus hypertension atrial fibrillation patient apparently he was recently admitted at [facility] for left lower extremity cellulitis at that point the patient did have blister formation and some superficial ulceration patient was treated with IV antibiotic therapy local wound care subsequent discharged home patient currently has been evaluated by the home care nurse which was concerned that the wound to the left ankle area the surgical department for the patient has been sent to the hospital patient on presentation to the hospital was afebrile and no fever has been recorded subsequently patient did have a white count of 10.9 with a left shift INR is normal creatinine is normal electrolytes normal lactic was mildly elevated liver exams are normal CRP is 1.7 patient was admitted to the hospital started on vancomycin concerning for cellulitis infectious disease was consulted for further management of antibiotic therapy, patient currently has been complaining of mostly swelling to the left lower extremity minimal redness did have mild dull aching pain 2-3 out of 10 no radiation Review of Systems Positive point and negatives has been mentioned in the HPI, complete review of systems was performed and all other systems are negative Past Medical History Past Medical History: Atrial Fibrillation, Diabetes Mellitus, Hypertension History of Any Multi-Drug Resistant Organisms: None Reported Past Surgical History: No Surgical Hx Reported Past Psychological History: No Psychological Hx Reported Smoking Status: Never smoker Past Alcohol Use History: None Reported Past Drug Use History: None Reported - Past Family History Father Family Medical History: No Reported History Additional Family Medical History / Comment(s): living age 93. healthy Mother Family Medical History: CVA/TIA Medications and Allergies Home Medications Medication Instructions Recorded Confirmed Type Acarbose [Precose] 50 mg PO TID 01/02/23 01/02/23 History Aspirin EC [Ecotrin Low Dose] 81 mg PO DAILY 01/02/23 01/02/23 History Cetirizine HCl [Zyrtec] 10 mg PO HS 01/02/23 01/02/23 History Cholecalciferol [Vitamin D3 (125 125 mcg PO HS 01/02/23 01/02/23 History Mcg = 5000 Iu)] Cinnamon Bark [Cinnamon] 500 mg PO BID 01/02/23 01/02/23 History Docusate [Colace] 100 mg PO DAILY 01/02/23 01/02/23 History Echinacea 760mg Capsule 1 cap PO DAILY 01/02/23 01/02/23 History Elderberry Fruit [Elderberry] 350 mg PO HS 01/02/23 01/02/23 History Desiree C 500mg Tab 500 mg PO DAILY 01/02/23 01/02/23 History Furosemide [Lasix] 40 mg PO DAILY 01/02/23 01/02/23 History Goldenseal 400mg Capsule 1 cap PO HS 01/02/23 01/02/23 History Lisinopril-Hctz 20-12.5 mg 1 tab PO HS 01/02/23 01/02/23 History [Zestoretic 20-12.5] Magnesium Oxide [Magnesium] 500 mg PO HS 01/02/23 01/02/23 History Metoprolol Tartrate [Lopressor] 75 mg PO BID 01/02/23 01/02/23 History Multivit-Min/FA/Lycopen/Lutein 1 tab PO DAILY 01/02/23 01/02/23 History [Centrum Silver Tablet] Potassium Chloride [Klor-Con M10] 10 meq PO BID 01/02/23 01/02/23 History Qunol Hitesh Co Q 10 1 tab PO DAILY 01/02/23 01/02/23 History Saw [place] 500 mg PO DAILY 01/02/23 01/02/23 History Super Beta Prostate Tablet 1 tab PO HS 01/02/23 01/02/23 History Thiamine HCl [Vitamin B-1] 250 mg PO DAILY 01/02/23 01/02/23 History Ultra [place]on[place]-3 935mg 1 cap PO HS 01/02/23 01/02/23 History Vitamin B Complex 1 cap PO HS 01/02/23 01/02/23 History Warfarin [Coumadin] 2.5 mg PO MO@2100 01/02/23 01/02/23 History Warfarin [Coumadin] 5 mg PO SUTUWETHFRSA@2100 01/02/23 01/02/23 History gemfibroziL [Lopid] 600 mg PO BID 01/02/23 01/02/23 History glipiZIDE XL [Glucotrol XL] 5 mg PO DAILY 01/02/23 01/02/23 History metFORMIN HCL [Glucophage] 1,000 mg PO HS 01/02/23 01/02/23 History polyethylene glycoL 3350 [Miralax] 17 gm PO DAILY PRN 01/02/23 01/02/23 History sitaGLIPtin PHOS/metFORMIN HCL 1 tab PO DAILY 01/02/23 01/02/23 History [Janumet 50-1,000 mg Tablet] Acetaminophen Tab [Tylenol] 650 mg PO Q6HR PRN tab 01/06/23 Rx Doxycycline Hyclate 100 mg PO Q12H 10 Days #20 tab 01/06/23 Rx Ferrous Sulfate [Iron (65 MG 325 mg PO BID-W/MEALS #60 tab 01/06/23 Rx Elemental)] Pantoprazole [Protonix] 40 mg PO DAILY #30 tab 01/06/23 Rx Allergies Allergy/AdvReac Type Severity Reaction Status Date / Time No Known Allergies Allergy Verified 01/02/23 16:28 Physical Exam Vitals: Vital Signs Temp Pulse Pulse Resp BP BP Pulse Ox 01/03/23 07:00 98.1 F 93 16 119/76 95 01/03/23 00:05 97.7 F 73 20 110/68 96 01/02/23 20:35 98.2 F 94 14 119/77 98 01/02/23 20:00 97.8 F 90 18 113/77 98 01/02/23 19:05 98.0 F 83 17 104/63 95 01/02/23 18:28 88 17 105/72 98 01/02/23 17:45 98.2 F 85 17 114/62 98 01/02/23 15:34 97.9 F 89 17 106/65 97 01/02/23 14:15 98.2 F 90 18 97/64 95 Intake and Output 01/02/23 01/03/23 01/03/23 22:59 06:59 14:59 Intake Total 118 Balance 118 Intake: Oral 118 Other: # Voids 2 4 Weight 117.934 kg GENERAL DESCRIPTION: Anteriorly male lying in bed, no distress. No tachypnea or accessory muscle of respiration use. HEENT: Shows Pallor , no scleral icterus. Oral mucous membrane is dry. No pharyngeal erythema or thrush NECK: Trachea central, no thyromegaly. LUNGS: Unlabored breathing. Clear to auscultation anteriorly. No wheeze or crackle. HEART: S1, S2, regular rate and rhythm. No loud murmur ABDOMEN: Soft, no tenderness , guarding or rigidity, no organomegaly EXTREMITIES: Left lower extremity did have dry scaly skin left ankle. Currently with no open wound soft tissue or any drainage SKIN: No rash, no masses palpable. NEUROLOGICAL: The patient is awake, alert, oriented x3, mood and affect normal. Results CBC & Chem 7: 01/06/23 05:40 01/05/23 12:49 Labs: Abnormal Lab Results - Last 24 Hours (Table) 01/02/23 01/02/23 01/02/23 Range/Units 15:42 15:42 15:42 WBC 10.9 H (3.8-10.6) k/uL RBC 2.97 L (4.30-5.90) m/uL Hgb 9.4 L (13.0-17.5) gm/dL Hct 27.7 L (39.0-53.0) % PT (9.0-12.0) sec INR (<1.2) Sodium 135 L (137-145) mmol/L BUN 66 H (9-20) mg/dL Glucose 167 H (74-99) mg/dL POC Glucose (mg/dL) (70-110) mg/dL Plasma Lactic Acid Evans 2.3 H* (0.7-2.0) mmol/L C-Reactive Protein 1.7 H (<1.0) mg/dL 01/02/23 01/02/23 01/03/23 Range/Units 20:14 20:46 05:37 WBC (3.8-10.6) k/uL RBC (4.30-5.90) m/uL Hgb (13.0-17.5) gm/dL Hct (39.0-53.0) % PT 30.7 H 25.8 H (9.0-12.0) sec INR 3.1 H 2.6 H (<1.2) Sodium (137-145) mmol/L BUN (9-20) mg/dL Glucose (74-99) mg/dL POC Glucose (mg/dL) 147 H (70-110) mg/dL Plasma Lactic Acid Evans (0.7-2.0) mmol/L C-Reactive Protein (<1.0) mg/dL Assessment and Plan (1) Cellulitis of foot Status: Acute Code(s): L03.119 - CELLULITIS OF UNSPECIFIED PART OF LIMB SNOMED Code(s): 156662631 Plan: 1patient was in the hospital with a left lower extremity swelling and did have the wound to the left ankle area but the home care nurse concerning for possible worsening wound and need for debridement patient however do not have any open wound to the left ankle area did have mild swelling and bruising and dry scaly skin possible mild cellulitis however did have a predominantly swelling and will need to rule out underlying DVT 2-we will obtain lower extremity Doppler 3-if negative for DVT nursing staff has been advised to apply Baudilio wrap to the leg to keep the swelling down of the leg is washed out of the dry scaly skin 4-continue with the vancomycin pharmacy to dose while watching his kidney function closely Family at the bedside questions were answered We will follow on clinical condition and cultures to further adjust medication if needed Thank you for this consultation we will follow the patient along with you Dictation was produced using [employer] dictation software. please excuse any grammatical, word or spelling errors. Time with Patient: Greater than 30
[2023-01-04] MEDS: VANCOMYCIN 1,750 MG in SODIUM CHLORIDE 0.9% 500 ML 500 ML IVPB SCH ×2 (04:58→20:36)
[2023-01-04 06:11] LABS: Glucose,Whole Blood 85 mg/dL (70-110)
[2023-01-04 06:22] LABS: African American GFR (CKD) 80 (>60 ml/min/1.73 sqM); Anion Gap 7 mmol/L; Blood Urea Nitrogen 40 mg/dL (9-20); Calcium 9.5 mg/dL (8.4-10.2); Carbon Dioxide 27 mmol/L (22-30); Chloride 106 mmol/L (98-107); Glucose 77 mg/dL (74-99); Non-African American GFR(CKD) 69 (>60 ml/min/1.73 sqM); Potassium 5.2 mmol/L (3.5-5.1); Sodium 140 mmol/L (137-145)
[2023-01-04 06:55] LABS: INR 2.2 (<1.2); Prothrombin Time 21.8 sec (9.0-12.0)
[2023-01-04 07:52] VITALS: RESP 16
[2023-01-04] MEDS: THIAMINE 100 MG TAB PO SCH (08:40)
[2023-01-04] MEDS: LINAGLIPTIN 5 MG TABLET PO SCH (08:41)
[2023-01-04] MEDS: ASPIRIN 81 MG PO SCH (08:41)
[2023-01-04] MEDS: ACARBOSE 25 MG TAB PO SCH ×3 (08:41→20:34)
[2023-01-04] MEDS: POTASSIUM CHLORIDE ER 10 MEQ TAB.ER.PRT PO SCH ×2 (08:42→20:33)
[2023-01-04] MEDS: FUROSEMIDE 40 MG TAB PO SCH (08:42)
[2023-01-04] MEDS: FAMOTIDINE 20 MG TAB PO SCH ×2 (08:42→20:34)
[2023-01-04] MEDS: DOCUSATE 100 MG CAP PO SCH (08:42)
[2023-01-04] MEDS: glipiZIDE 5 MG TAB PO SCH (08:42)
[2023-01-04] MEDS: metFORMIN 500 MG TAB PO SCH ×2 (08:42→20:33)
[2023-01-04] MEDS: FENOFIBRATE 160 MG TAB PO SCH (08:42)
[2023-01-04] MEDS: METOPROLOL TARTRATE 25 MG TAB PO SCH ×2 (08:42→20:33)
[2023-01-04 09:56] LABS: Basophils # (A) 0.06 X 10*3/uL (0.00-0.10); Basophils % (A) 0.5 %; Eosinophils # (A) 0.51 X 10*3/uL (0.04-0.35); Eosinophils % (A) 4.1 %; HCT 23.5 % (39.6-50.0); HGB 7.3 d/dL (13.0-17.0); Lymphocytes # (A) 2.91 X 10*3/uL (0.90-5.00); Lymphocytes % (A) 23.2 %; MCH 31.1 pg (27.0-32.0); MCHC 31.1 d/dL (32.0-37.0); Mean Platelet Volume 11.2 FL (9.5-12.2); Monocytes # (A) 1.02 X 10*3/uL (0.20-1.00); Monocytes % (A) 8.1 %; NRBC Per 100 WBC 0.04 X 10*3/uL (0.00-0.01); Neutrophils # (A) 7.92 X 10*3/uL (1.80-7.70); Neutrophils % (A) 63.1 %; Platelet Count 354 X 10*3/uL (140-440); RBC 2.35 X 10*6/uL (4.40-5.60); RDW 14.6 % (11.5-14.5); WBC 12.54 X 10*3/uL (4.50-10.00)
--- NOTE | 2023-01-04 10:00 | P.GSCN ---
History of Present Illness Consult date: 01/04/23 History of present illness: Patient is a 67-year-old male with past medical history of diabetes, hypertension, atrial fibrillation on anticoagulation and recently with a infected left lower extremity wound. Initially he states it started with a wound at the distal pinky toe which didn't cause significant swelling and issue to his leg for which he presented to [facility]. He was given antibiotics and eventually discharged home, he was being seen at home for about 2 weeks by home health care nursing and was sent into the hospital for concerns of his wound. The patient states overall he has significant improvement of his foot and ankle. He denies any significant pain or drainage. He states that the pain he has a relation to the stiffness at the area where the scabbing ends. He denies any fevers, chills, nausea or vomiting. Past Medical History Past Medical History: Atrial Fibrillation, Diabetes Mellitus, Hypertension History of Any Multi-Drug Resistant Organisms: None Reported Past Surgical History: No Surgical Hx Reported Past Psychological History: No Psychological Hx Reported Smoking Status: Never smoker Past Alcohol Use History: None Reported Past Drug Use History: None Reported - Past Family History Father Family Medical History: No Reported History Additional Family Medical History / Comment(s): living age 93. healthy Mother Family Medical History: CVA/TIA Medications and Allergies Home Medications Medication Instructions Recorded Confirmed Type Acarbose [Precose] 50 mg PO TID 01/02/23 01/02/23 History Aspirin EC [Ecotrin Low Dose] 81 mg PO DAILY 01/02/23 01/02/23 History Cetirizine HCl [Zyrtec] 10 mg PO HS 01/02/23 01/02/23 History Cholecalciferol [Vitamin D3 (125 125 mcg PO HS 01/02/23 01/02/23 History Mcg = 5000 Iu)] Cinnamon Bark [Cinnamon] 500 mg PO BID 01/02/23 01/02/23 History Docusate [Colace] 100 mg PO DAILY 01/02/23 01/02/23 History Echinacea 760mg Capsule 1 cap PO DAILY 01/02/23 01/02/23 History Elderberry Fruit [Elderberry] 350 mg PO HS 01/02/23 01/02/23 History Desiree C 500mg Tab 500 mg PO DAILY 01/02/23 01/02/23 History Furosemide [Lasix] 40 mg PO DAILY 01/02/23 01/02/23 History Goldenseal 400mg Capsule 1 cap PO HS 01/02/23 01/02/23 History Lisinopril-Hctz 20-12.5 mg 1 tab PO HS 01/02/23 01/02/23 History [Zestoretic 20-12.5] Magnesium Oxide [Magnesium] 500 mg PO HS 01/02/23 01/02/23 History Metoprolol Tartrate [Lopressor] 75 mg PO BID 01/02/23 01/02/23 History Multivit-Min/FA/Lycopen/Lutein 1 tab PO DAILY 01/02/23 01/02/23 History [Centrum Silver Tablet] Potassium Chloride [Klor-Con M10] 10 meq PO BID 01/02/23 01/02/23 History Qunol Htiesh Co Q 10 1 tab PO DAILY 01/02/23 01/02/23 History Saw [place] 500 mg PO DAILY 01/02/23 01/02/23 History Super Beta Prostate Tablet 1 tab PO HS 01/02/23 01/02/23 History Thiamine HCl [Vitamin B-1] 250 mg PO DAILY 01/02/23 01/02/23 History Ultra [place]-3 935mg 1 cap PO HS 01/02/23 01/02/23 History Vitamin B Complex 1 cap PO HS 01/02/23 01/02/23 History Warfarin [Coumadin] 2.5 mg PO MO@2100 01/02/23 01/02/23 History Warfarin [Coumadin] 5 mg PO SUTUWETHFRSA@2100 01/02/23 01/02/23 History gemfibroziL [Lopid] 600 mg PO BID 01/02/23 01/02/23 History glipiZIDE XL [Glucotrol XL] 2.5 mg PO HS 01/02/23 01/02/23 History glipiZIDE XL [Glucotrol Xl] 5 mg PO DAILY 01/02/23 01/02/23 History metFORMIN HCL [Glucophage] 1,000 mg PO HS 01/02/23 01/02/23 History polyethylene glycoL 3350 [Miralax] 17 gm PO DAILY PRN 01/02/23 01/02/23 History sitaGLIPtin PHOS/metFORMIN HCL 1 tab PO DAILY 01/02/23 01/02/23 History [Janumet 50-1,000 mg Tablet] Allergies Allergy/AdvReac Type Severity Reaction Status Date / Time No Known Allergies Allergy Verified 01/02/23 16:28 Surgical - Exam Vital Signs Temp Pulse Resp BP Pulse Ox 98.2 F 90 18 97/64 95 01/02/23 14:15 01/02/23 14:15 01/02/23 14:15 01/02/23 14:15 01/02/23 14:15 Gen. a pleasant cooperative male in no acute distress. HEENT is normal cephalic atraumatic, extraction motion intact. Heart appears irregularly irregular at this time. Lungs are clear. Abdomen is soft. Left lower extremity with dry scaling skin. No obvious open wounds. On the medial portion the ankle there is some dried serous drainage versus mild eschar. No obvious wound in this area. Feeling palpable dorsalis pedis pulse. Motor sensory intact. Cranial nerves II through XII grossly intact Results Ultrasound reviewed, no evidence of DVT - Labs 01/02/23 15:42 01/04/23 05:24 Abnormal Lab Results - Last 24 Hours (Table) 01/03/23 01/03/23 01/04/23 Range/Units 17:11 20:16 05:24 PT 21.8 H (9.0-12.0) sec INR 2.2 H (<1.2) Potassium (3.5-5.1) mmol/L BUN (9-20) mg/dL POC Glucose (mg/dL) 130 H 156 H (70-110) mg/dL 01/04/23 Range/Units 05:24 PT (9.0-12.0) sec INR (<1.2) Potassium 5.2 H (3.5-5.1) mmol/L BUN 40 H (9-20) mg/dL POC Glucose (mg/dL) (70-110) mg/dL Microbiology - Last 24 Hours (Table) 01/02/23 19:30 Blood Culture - Preliminary Blood 01/02/23 19:15 Blood Culture - Preliminary Blood Diabetes panel 01/04/23 Range/Units 05:24 Sodium 140 (137-145) mmol/L Potassium 5.2 H (3.5-5.1) mmol/L Chloride 106 (98-107) mmol/L Carbon Dioxide 27 (22-30) mmol/L BUN 40 H (9-20) mg/dL Creatinine 1.09 (0.66-1.25) mg/dL Glucose 77 (74-99) mg/dL Calcium 9.5 (8.4-10.2) mg/dL Calcium panel 01/04/23 Range/Units 05:24 Calcium 9.5 (8.4-10.2) mg/dL Pituitary panel 01/04/23 Range/Units 05:24 Sodium 140 (137-145) mmol/L Potassium 5.2 H (3.5-5.1) mmol/L Chloride 106 (98-107) mmol/L Carbon Dioxide 27 (22-30) mmol/L BUN 40 H (9-20) mg/dL Creatinine 1.09 (0.66-1.25) mg/dL Glucose 77 (74-99) mg/dL Calcium 9.5 (8.4-10.2) mg/dL Adrenal panel 01/04/23 Range/Units 05:24 Sodium 140 (137-145) mmol/L Potassium 5.2 H (3.5-5.1) mmol/L Chloride 106 (98-107) mmol/L Carbon Dioxide 27 (22-30) mmol/L BUN 40 H (9-20) mg/dL Creatinine 1.09 (0.66-1.25) mg/dL Glucose 77 (74-99) mg/dL Calcium 9.5 (8.4-10.2) mg/dL Assessment and Plan Assessment: Left lower extremity swelling and previous wound Imaging skin Diabetes A. fib on anticoagulation Plan: I had the pleasure of seeing Mike. After long evaluation and examination, I do not believe he requires operative intervention or debridement. We'll continue with local wound care. We will trial calamine versus possible triad to the leg to help with the itching as well as try to soften the areas of dry skin that are still stuck. I do not believe there is any aggressive debridement needed at this time. Will utilize a surgical scrub in order to decrease some of the skilled skin. Patient appears to be improving overall, if he has worsening symptoms or elevated white count, would consider further imaging to evaluate for possible osteomyelitis or deep space infection however this point no evidence of this. Continue with elevation and compression.
[2023-01-04 11:58] LABS: Glucose,Whole Blood 123 mg/dL (70-110)
[2023-01-04] MEDS: CALAMINE/ZINC OXIDE LOTION 177 ML BTL TOPICAL SCH ×2 (12:53→20:36)
--- NOTE | 2023-01-04 15:24 | PN ---
PROGRESS NOTE DATE OF SERVICE: 01/04/2023 SUBJECTIVE: This is a 67-year-old gentleman admitted with left leg ulcer and bullae, was being treated at [facility]. No chest pain. No palpitations. No fever. Dr. Lacne recommended no debridement at this point. PHYSICAL EXAMINATION: VITAL SIGNS: Pulse is 59, blood pressure 114/70, respirations 15. CHEST: Clear to auscultation. CARDIOVASCULAR: S1, S2. ABDOMEN: Soft. NERVOUS SYSTEM: No focal deficit. EXTREMITIES: Left leg significant erythema, cellulitis, tenderness present. LABORATORY DATA: Reviewed. ASSESSMENT: 1. Left leg cellulitis with failure of outpatient treatment, rule out osteomyelitis. 2. Increased WBC. 3. Atrial fibrillation. 4. Diabetes mellitus, type 2. 5. Hypertension. 6. Multiple medical issues. RECOMMENDATIONS AND DISCUSSION: I recommend to continue current medication, continue symptomatic treatment. Otherwise, at this time, I would recommend repeat labs. Closely follow with Infectious Disease. Further recommendations to follow. MMODL / IJN: [id number] /
--- NOTE | 2023-01-04 16:29 | P.PN ---
Subjective Progress Note Date: 01/04/23 Patient was seen and examined at bedside. He denies having any chest pain or shortness of breath. He reports that he finds it difficult to get up and use restroom and is not happy taking his Lasix. PHYSICAL EXAMINATION Vital signs reviewed. CONSTITUTIONAL: No apparent distress. Morbidly obese HEENT: Head is normocephalic. Pupils are equal, round. Sclerae anicteric. Mucous membranes of the mouth are moist. No JVD. No carotid bruit. CHEST EXAMINATION: Lungs are clear to auscultation. No chest wall tenderness is noted on palpation or with deep breathing. HEART EXAMINATION: Irregularly irregular S1, S2 heard. No murmurs, gallops or rub. ABDOMEN: Soft, nontender. Positive bowel sounds. EXTREMITIES: 2+ peripheral pulses, no lower extremity edema and no calf tenderness. NEUROLOGIC EXAMINATION: Patient is awake, alert and oriented x3. ASSESSMENT Lower extremity cellulitis Chronic atrial fibrillation. On anticoagulation with warfarin Chronic heart failure with preserved ejection fraction Moderate obesity PLAN Continue aspirin, Lasix 40 mg daily, lisinopril, hydrochlorothiazide, metoprolol 75 mg twice a day. Debridement surgery is not indicated as per surgery team. We will recommend resuming his warfarin for atrial fibrillation Start Jardiance 10 mg daily Continue IV antibiotics as per primary team Wound care and peripheral vascular evaluation as per surgery team and primary team No further cardiac testing needed at this time Objective - Vital Signs Vital signs: Vital Signs Temp 98.0 F 01/04/23 15:00 Pulse 80 01/04/23 15:00 Resp 16 01/04/23 15:00 BP 104/66 01/04/23 15:00 Pulse Ox 98 01/04/23 15:00 FiO2 Intake & Output 01/03/23 01/04/23 01/04/23 18:59 06:59 18:59 Intake Total 118 Balance 118 Intake: Oral 118 Other: # Voids 2 2 5 # Bowel Movements 1 - Labs CBC & Chem 7: 01/04/23 05:24 01/04/23 05:24 Labs: Abnormal Lab Results - Last 24 Hours (Table) 01/03/23 01/03/23 01/04/23 Range/Units 17:11 20:16 05:24 WBC (4.50-10.00) X 10*3/uL RBC (4.40-5.60) X 10*6/uL Hgb (13.0-17.0) d/dL Hct (39.6-50.0) % MCV (80.0-97.0) FL MCHC (32.0-37.0) d/dL RDW (11.5-14.5) % Neutrophils # (1.80-7.70) X 10*3/uL Monocytes # (0.20-1.00) X 10*3/uL Eosinophils # (0.04-0.35) X 10*3/uL NRBC/100 WBC Diff (0.00-0.01) X 10*3/uL PT 21.8 H (9.0-12.0) sec INR 2.2 H (<1.2) Potassium (3.5-5.1) mmol/L BUN (9-20) mg/dL POC Glucose (mg/dL) 130 H 156 H (70-110) mg/dL 01/04/23 01/04/23 01/04/23 Range/Units 05:24 05:24 11:56 WBC 12.54 H (4.50-10.00) X 10*3/uL RBC 2.35 L (4.40-5.60) X 10*6/uL Hgb 7.3 L (13.0-17.0) d/dL Hct 23.5 L (39.6-50.0) % MCV 100.0 H (80.0-97.0) FL MCHC 31.1 L (32.0-37.0) d/dL RDW 14.6 H (11.5-14.5) % Neutrophils # 7.92 H (1.80-7.70) X 10*3/uL Monocytes # 1.02 H (0.20-1.00) X 10*3/uL Eosinophils # 0.51 H (0.04-0.35) X 10*3/uL NRBC/100 WBC Diff 0.04 H (0.00-0.01) X 10*3/uL PT (9.0-12.0) sec INR (<1.2) Potassium 5.2 H (3.5-5.1) mmol/L BUN 40 H (9-20) mg/dL POC Glucose (mg/dL) 123 H (70-110) mg/dL Microbiology - Last 24 Hours (Table) 01/02/23 19:30 Blood Culture - Preliminary Blood 01/02/23 19:15 Blood Culture - Preliminary Blood
[2023-01-04] MEDS: DAPAGLIFLOZIN PROPANEDIOL 10 MG TABLET PO SCH (16:51)
[2023-01-04 17:22] LABS: Glucose,Whole Blood 126 mg/dL (70-110)
[2023-01-04 20:16] LABS: Glucose,Whole Blood 129 mg/dL (70-110)
[2023-01-04] MEDS: LORATADINE 10 MG TAB PO SCH (20:33)
[2023-01-04] MEDS: LISINOPRIL-HCTZ 20-12.5 MG 1 EACH TAB PO SCH (20:34)
[2023-01-04] MEDS: CHOLECALCIFEROL 125 MCG (5000 IU) TABLET PO SCH (20:34)
[2023-01-04] MEDS: MAGNESIUM OXIDE 400 MG TAB PO SCH (20:34)
--- NOTE | 2023-01-04 22:40 | P.PN ---
Subjective Progress Note Date: 01/04/23 Principal diagnosis: Left lower extremity cellulitis Patient is a 67-year male with a past medical history pertinent for diabetes mellitus hypertension atrial fibrillation patient did have a some superficial ulceration to the lower extremity and the patient was sent to the hospital by the home care nurse concerning for worsening wound and need for debridement On today's evaluation that is 01/04/2023, the patient denies having any fever or any chills patient is breathing comfortably. Denies having any chest pain shortness of breath or cough denies any worsening pain to the lower extremity currently with open wound or any drainage Objective - Vital Signs Vital signs: Vital Signs Temp 98.0 F 01/04/23 07:00 Pulse 76 01/04/23 07:00 Resp 16 01/04/23 07:00 BP 115/69 01/04/23 07:00 Pulse Ox 98 01/04/23 07:00 FiO2 Intake & Output 01/03/23 01/04/23 01/04/23 18:59 06:59 18:59 Intake Total 118 Balance 118 Intake: Oral 118 Other: # Voids 2 2 - Exam GENERAL DESCRIPTION: An elderly male lying in bed in no distress RESPIRATORY SYSTEM: Unlabored breathing , decreased breath sounds at bases HEART: S1 S2 regular rate and rhythm , ABDOMEN: Soft , no tenderness EXTREMITIES: Left lower extremity did have some swelling dry scaly skin currently do not have any open wound or drainage - Labs CBC & Chem 7: 01/04/23 05:24 01/04/23 05:24 Labs: Abnormal Lab Results - Last 24 Hours (Table) 01/03/23 01/03/23 01/04/23 Range/Units 17:11 20:16 05:24 WBC (4.50-10.00) X 10*3/uL RBC (4.40-5.60) X 10*6/uL Hgb (13.0-17.0) d/dL Hct (39.6-50.0) % MCV (80.0-97.0) FL MCHC (32.0-37.0) d/dL RDW (11.5-14.5) % Neutrophils # (1.80-7.70) X 10*3/uL Monocytes # (0.20-1.00) X 10*3/uL Eosinophils # (0.04-0.35) X 10*3/uL NRBC/100 WBC Diff (0.00-0.01) X 10*3/uL PT 21.8 H (9.0-12.0) sec INR 2.2 H (<1.2) Potassium (3.5-5.1) mmol/L BUN (9-20) mg/dL POC Glucose (mg/dL) 130 H 156 H (70-110) mg/dL 01/04/23 01/04/23 Range/Units 05:24 05:24 WBC 12.54 H (4.50-10.00) X 10*3/uL RBC 2.35 L (4.40-5.60) X 10*6/uL Hgb 7.3 L (13.0-17.0) d/dL Hct 23.5 L (39.6-50.0) % MCV 100.0 H (80.0-97.0) FL MCHC 31.1 L (32.0-37.0) d/dL RDW 14.6 H (11.5-14.5) % Neutrophils # 7.92 H (1.80-7.70) X 10*3/uL Monocytes # 1.02 H (0.20-1.00) X 10*3/uL Eosinophils # 0.51 H (0.04-0.35) X 10*3/uL NRBC/100 WBC Diff 0.04 H (0.00-0.01) X 10*3/uL PT (9.0-12.0) sec INR (<1.2) Potassium 5.2 H (3.5-5.1) mmol/L BUN 40 H (9-20) mg/dL POC Glucose (mg/dL) (70-110) mg/dL Microbiology - Last 24 Hours (Table) 01/02/23 19:30 Blood Culture - Preliminary Blood 01/02/23 19:15 Blood Culture - Preliminary Blood Assessment and Plan (1) Cellulitis of foot Current Visit: Yes Status: Acute Code(s): L03.119 - CELLULITIS OF UNSPECIFIED PART OF LIMB SNOMED Code(s): 565689822 Plan: 1patient was in the hospital with a left lower extremity swelling and did have the wound to the left ankle area but the home care nurse concerning for possible worsening wound and need for debridement patient however do not have any open wound to the left ankle area did have mild swelling and bruising and dry scaly skin possible mild cellulitis however did have a predominantly swelling and patient did have lower extremity Doppler, that was negative for DVT 2nursing staff has been advised to apply moisturizing cream to the dry skin syndrome followed by Baudilio wrap to the leg to keep the swelling down 3patient to continue with the vancomycin pharmacy to dose while watching his kidney function closely 4clinically doubt osteomyelitis and no need for bone scan Dictation was produced using [employer] dictation software. please excuse any grammatical, word or spelling errors. Time with Patient: Less than 30
[2023-01-05 06:19] LABS: Glucose,Whole Blood 91 mg/dL (70-110)
[2023-01-05] MEDS: metFORMIN 500 MG TAB PO SCH ×2 (08:59→20:25)
[2023-01-05] MEDS: THIAMINE 100 MG TAB PO SCH (08:59)
[2023-01-05] MEDS: LINAGLIPTIN 5 MG TABLET PO SCH (09:00)
[2023-01-05] MEDS: DOCUSATE 100 MG CAP PO SCH (09:00)
[2023-01-05] MEDS: ACARBOSE 25 MG TAB PO SCH ×3 (09:00→20:25)
[2023-01-05] MEDS: glipiZIDE 5 MG TAB PO SCH (09:00)
[2023-01-05] MEDS: METOPROLOL TARTRATE 25 MG TAB PO SCH ×2 (09:00→20:29)
[2023-01-05] MEDS: FENOFIBRATE 160 MG TAB PO SCH (09:00)
[2023-01-05] MEDS: DAPAGLIFLOZIN PROPANEDIOL 10 MG TABLET PO SCH (09:00)
[2023-01-05] MEDS: ASPIRIN 81 MG PO SCH (09:00)
[2023-01-05] MEDS: FAMOTIDINE 20 MG TAB PO SCH (09:01)
[2023-01-05] MEDS: CALAMINE/ZINC OXIDE LOTION 177 ML BTL TOPICAL SCH ×2 (09:10→21:59)
[2023-01-05] MEDS: FUROSEMIDE 40 MG TAB PO SCH (10:30)
[2023-01-05] MEDS: POTASSIUM CHLORIDE ER 10 MEQ TAB.ER.PRT PO SCH ×2 (10:31→20:26)
[2023-01-05] MEDS ORDERED: VANCOMYCIN TROUGH DUE 1 EACH MISC MISCELLANE ONE (11:00)
[2023-01-05 12:29] LABS: Glucose,Whole Blood 61 mg/dL (70-110)
--- NOTE | 2023-01-05 12:45 | P.PN ---
Subjective Progress Note Date: 01/05/23 Patient seen and examined today as a follow-up. He is without any acute complaints. He is afebrile. Objective - Vital Signs Vital signs: Vital Signs Temp 98.2 F 01/05/23 08:00 Pulse 82 01/05/23 08:00 Resp 16 01/05/23 08:00 BP 109/64 01/05/23 08:00 Pulse Ox 99 01/05/23 08:00 FiO2 Intake & Output 01/04/23 01/05/23 01/05/23 18:59 06:59 18:59 Other: # Voids 5 # Bowel Movements 1 - Exam Gen. a pleasant cooperative male in no acute distress. HEENT is normal cephalic atraumatic, extraction motion intact. Heart appears irregularly irregular at th is time. Lungs are clear. Abdomen is soft. Left lower extremity with dry scaling skin. No obvious open wounds. On the medial portion the ankle there is some dried serous drainage versus mild eschar. No obvious wound in this area. He has palpable dorsalis pedis pulse. Motor sensory intact. Cranial nerves II through XII grossly intact - Labs CBC & Chem 7: 01/04/23 05:24 01/04/23 05:24 Labs: Abnormal Lab Results - Last 24 Hours (Table) 01/04/23 01/04/23 01/05/23 Range/Units 17:20 20:15 12:27 POC Glucose (mg/dL) 126 H 129 H 61 L (70-110) mg/dL Microbiology - Last 24 Hours (Table) 01/02/23 19:30 Blood Culture - Preliminary Blood 01/02/23 19:15 Blood Culture - Preliminary Blood Assessment and Plan Assessment: 1. Left lower extremity swelling and previous wound 2. Stasis dermatitis 3. Diabetes 4. Atrial fibrillation on anticoagulation Plan: Continue local wound care. Continue calamine versus possible triad to like to help with itching. Continue with good moisturizer, Lower extremity elevation and compression. Recommend outpatient wound care. Patient states he would like to follow in [place]. There is no indication for any vascular surgical intervention at this time. Thank you for this consultation, we will sign off at this time. The impression and plan of care has been dictated as directed. I performed a history and examination of this patient, discussed the same with the dictator. I agree with the dictator's note ,documented as a scribe. Any additional findings or plans will be noted.
[2023-01-05 12:50] LABS: Glucose,Whole Blood 73 mg/dL (70-110)
[2023-01-05 13:18] LABS: African American GFR (CKD) >90 (>60 ml/min/1.73 sqM); Anion Gap 11 mmol/L; Blood Urea Nitrogen 26 mg/dL (9-20); Calcium 9.6 mg/dL (8.4-10.2); Carbon Dioxide 26 mmol/L (22-30); Chloride 103 mmol/L (98-107); Glucose 68 mg/dL (74-99); Non-African American GFR(CKD) 84 (>60 ml/min/1.73 sqM); Potassium 3.9 mmol/L (3.5-5.1); Sodium 140 mmol/L (137-145)
[2023-01-05 13:19] LABS: INR 1.8 (<1.2); Prothrombin Time 17.7 sec (9.0-12.0)
[2023-01-05 13:28] LABS: Anisocytosis Slight; Basophils # (A) 0.1 k/uL (0-0.2); Basophils % (A) 0 %; Eosinophils # (A) 0.4 k/uL (0-0.7); Eosinophils % (A) 3 %; HCT 26.6 % (39.0-53.0); HGB 8.4 gm/dL (13.0-17.5); Hypochromasia Slight; Lymphocytes # (A) 3.4 k/uL (1.0-4.8); Lymphocytes % (A) 24 %; MCHC 31.5 g/dL (31.0-37.0); MCV 98.2 fL (80.0-100.0); Macrocytosis Slight; Mean Platelet Volume 8.7; Monocytes # (A) 0.8 k/uL (0-1.0); Monocytes % (A) 5 %; Neutrophils # (A) 9.5 k/uL (1.3-7.7); Neutrophils % (A) 66 %; Platelet Count 367 k/uL (150-450); RBC 2.71 m/uL (4.30-5.90); RDW 16.5 % (11.5-15.5); WBC 14.4 k/uL (3.8-10.6)
[2023-01-05] MEDS: VANCOMYCIN 1,750 MG in SODIUM CHLORIDE 0.9% 500 ML 500 ML IVPB SCH (13:36)
[2023-01-05 17:07] LABS: Glucose,Whole Blood 96 mg/dL (70-110)
[2023-01-05] MEDS ORDERED: WARFARIN 5 MG TAB PO ONE (18:00)
--- NOTE | 2023-01-05 20:22 | P.PN ---
Subjective This is a pleasant 67 years old male with multiple medical problems including history of chronic atrial fibrillation on anticoagulation with warfarin Presents with left foot cellulitis treated with IV antibiotic vancomycin with ID team followed closely. Vascular surgery recommended no need for surgical intervention and follow-up as an outpatient. Also log handling equipment operator evaluated the patient and found him stable on many antihypertensive medications including Lasix, lisinopril, hydrochlorothiazide, metoprolol. Also the added farxiga However patient was found to be anemic with hemoglobin level 9.4, 7.3 and 8.4. Patient states that he's never had been felt is anemic, he never had colonoscopy/EGD. However he denies any overt bleeding. He says that his stool is Dr. dark brown and not black. No fresh blood. No dizziness. No chest pain or dyspnea. No other abdominal pain GI urinary or neurological symptoms. WBC is 14, INR 1.8. Patient received 5 mg of warfarin today Consult for PT OT staff We'll do anemia workup Patient afebrile to go home however are explained the treatment plan he agrees to stay and been worked up for significant anemia while he is on anticoagulation Objective - Vital Signs Vital signs: Vital Signs Temp 98.2 F 01/05/23 14:00 Pulse 77 01/05/23 14:00 Resp 16 01/05/23 14:00 BP 105/58 01/05/23 14:00 Pulse Ox 96 01/05/23 14:00 FiO2 Intake & Output 01/04/23 01/05/23 01/05/23 18:59 06:59 18:59 Intake Total 118 Balance 118 Intake: Oral 118 Other: # Voids 5 3 # Bowel Movements 1 - Exam GENERAL: The patient is alert and oriented x3, not in any acute distress. Well developed, well nourished. HEENT: Pupils are round and equally reacting to light. EOMI. No scleral icterus. No conjunctival pallor. Normocephalic, atraumatic. No pharyngeal erythema. No thyromegaly. CARDIOVASCULAR: S1 and S2 present. No murmurs, rubs, or gallops. PULMONARY: Chest is clear to auscultation, no wheezing , no crackles. ABDOMEN: Soft, nontender, nondistended, normoactive bowel sounds. No palpable organomegaly. MUSCULOSKELETAL: No joint swelling or deformity. -EXTREMITIES: No cyanosis, clubbing, or pedal edema. Left foot swelling with mild scaling, improving. No open wound NEUROLOGICAL: Gross neurological examination did not reveal any focal deficits. SKIN: No rashes. no petechiae. - Labs CBC & Chem 7: 01/05/23 12:49 01/05/23 12:49 Labs: Abnormal Lab Results - Last 24 Hours (Table) 01/04/23 01/04/23 01/05/23 Range/Units 17:20 20:15 12:27 WBC (3.8-10.6) k/uL RBC (4.30-5.90) m/uL Hgb (13.0-17.5) gm/dL Hct (39.0-53.0) % RDW (11.5-15.5) % Neutrophils # (1.3-7.7) k/uL PT (9.0-12.0) sec INR (<1.2) BUN (9-20) mg/dL Glucose (74-99) mg/dL POC Glucose (mg/dL) 126 H 129 H 61 L (70-110) mg/dL 01/05/23 01/05/23 01/05/23 Range/Units 12:49 12:49 12:49 WBC 14.4 H (3.8-10.6) k/uL RBC 2.71 L (4.30-5.90) m/uL Hgb 8.4 L (13.0-17.5) gm/dL Hct 26.6 L (39.0-53.0) % RDW 16.5 H (11.5-15.5) % Neutrophils # 9.5 H (1.3-7.7) k/uL PT 17.7 H (9.0-12.0) sec INR 1.8 H (<1.2) BUN 26 H (9-20) mg/dL Glucose 68 L (74-99) mg/dL POC Glucose (mg/dL) (70-110) mg/dL Microbiology - Last 24 Hours (Table) 01/02/23 19:30 Blood Culture - Preliminary Blood 01/02/23 19:15 Blood Culture - Preliminary Blood Assessment and Plan Assessment: Left foot cellulitis Macrocytic anemia Chronic atrial fibrillation on warfarin Clinic diastolic CHF Possible peripheral vascular disease Plan: Anemia workup Cartilage. The patient Continue with warfarin, INR today is 1.8, check INR tomorrow Antibiotic as per ID team. Currently on iv vancomycin Vascular surgery Cleared The patient for discharge Labs and medication were reviewed.. Continue same treatment. Continue with s ymptomatic treatment. Resume home medication. Monitor labs and vitals. DVT and GI prophylaxis. Further recommendations as per clinical course of the patient DVT prophylaxis: On warfarin GI Prophylaxis: Pepcid changed to Pepcid PT/OT: Pending Prognosis is guarded Plan of care discussed with staff and discussed with the patient and he agrees with it
[2023-01-05 20:25] LABS: Glucose,Whole Blood 162 mg/dL (70-110)
[2023-01-05] MEDS: PANTOPRAZOLE 40 MG TABLET PO SCH (20:25)
[2023-01-05] MEDS: MAGNESIUM OXIDE 400 MG TAB PO SCH (20:25)
[2023-01-05] MEDS: CHOLECALCIFEROL 125 MCG (5000 IU) TABLET PO SCH (20:25)
[2023-01-05] MEDS: LISINOPRIL-HCTZ 20-12.5 MG 1 EACH TAB PO SCH (20:26)
[2023-01-05] MEDS: LORATADINE 10 MG TAB PO SCH (20:26)
[2023-01-05] MEDS: polyethylene glycoL 3350 17 GM POWD.PACK PO PRN (20:29)
[2023-01-05] MEDS ORDERED: WARFARIN 5 MG TAB PO SCH (21:00)
[2023-01-06 03:02] LABS: % Iron Saturation 7.71 (15.00-50.00)
[2023-01-06] MEDS: VANCOMYCIN 1,750 MG in SODIUM CHLORIDE 0.9% 500 ML 500 ML IVPB SCH (03:02)
[2023-01-06] MEDS: polyethylene glycoL 3350 17 GM POWD.PACK PO PRN (03:06)
[2023-01-06] MEDS: PANTOPRAZOLE 40 MG TABLET PO SCH (05:38)
[2023-01-06 05:40] LABS: Glucose,Whole Blood 98 mg/dL (70-110)
[2023-01-06] MEDS: DOCUSATE 100 MG CAP PO SCH (08:31)
[2023-01-06] MEDS: ACARBOSE 25 MG TAB PO SCH (08:32)
[2023-01-06] MEDS: POTASSIUM CHLORIDE ER 10 MEQ TAB.ER.PRT PO SCH (08:32)
[2023-01-06] MEDS: METOPROLOL TARTRATE 25 MG TAB PO SCH (08:32)
[2023-01-06] MEDS: FENOFIBRATE 160 MG TAB PO SCH (08:32)
[2023-01-06] MEDS: metFORMIN 500 MG TAB PO SCH (08:32)
[2023-01-06] MEDS: LINAGLIPTIN 5 MG TABLET PO SCH (08:33)
[2023-01-06] MEDS: ASPIRIN 81 MG PO SCH (08:33)
[2023-01-06] MEDS: THIAMINE 100 MG TAB PO SCH (08:34)
[2023-01-06] MEDS: glipiZIDE 5 MG TAB PO SCH (08:34)
[2023-01-06] MEDS: FUROSEMIDE 40 MG TAB PO SCH (08:34)
[2023-01-06] MEDS: DAPAGLIFLOZIN PROPANEDIOL 10 MG TABLET PO SCH (08:41)
[2023-01-06] MEDS: CALAMINE/ZINC OXIDE LOTION 177 ML BTL TOPICAL SCH (08:41)
[2023-01-06 08:54] LABS: Anisocytosis Slight; Basophils % (A) 0 %; Eosinophils # (A) 0.3 k/uL (0-0.7); Eosinophils % (A) 3 %; HCT 24.4 % (39.0-53.0); HGB 7.8 gm/dL (13.0-17.5); Hypochromasia Moderate; Lymphocytes # (A) 2.4 k/uL (1.0-4.8); Lymphocytes % (A) 21 %; MCH 31.8 pg (25.0-35.0); MCV 99.2 fL (80.0-100.0); Macrocytosis Slight; Mean Platelet Volume 8.6; Monocytes # (A) 0.6 k/uL (0-1.0); Monocytes % (A) 5 %; Neutrophils # (A) 8.3 k/uL (1.3-7.7); Neutrophils % (A) 70 %; Platelet Count 317 k/uL (150-450); RBC 2.46 m/uL (4.30-5.90); RDW 17.6 % (11.5-15.5); WBC 11.8 k/uL (3.8-10.6)
[2023-01-06] MEDS ORDERED: SODIUM FERRIC GLUCONAT-SUCROSE 125 MG in SODIUM CHLORIDE 0.9% 100 ML IVPB ONE (09:34)
[2023-01-06] MEDS ORDERED: FERROUS SULFATE 325 MG TAB PO SCH (11:45)
[2023-01-06 12:37] LABS: Glucose,Whole Blood 87 mg/dL (70-110)
--- NOTE | 2023-01-06 13:02 | P.PN ---
Subjective Progress Note Date: 01/05/23 Principal diagnosis: Left lower extremity cellulitis Patient is a 67-year male with a past medical history pertinent for diabetes mellitus hypertension atrial fibrillation patient did have a some superficial ulceration to the lower extremity and the patient was sent to the hospital by the home care nurse concerning for worsening wound and need for debridement On today's evaluation that is 01/05/2023, the patient remains to be febrile patient is breathing comfortably on room air, the patient denies having any chest pain shortness of breath or cough denies any worsening pain to the lower extremity currently with open wound or any drainage Patient did have a white count of 14.4, creatinine 0.93, vancomycin trough is 18.4, blood cultures so far negative Objective - Vital Signs Vital signs: Vital Signs Temp 98.2 F 01/05/23 08:00 Pulse 82 01/05/23 08:00 Resp 16 01/05/23 08:00 BP 109/64 01/05/23 08:00 Pulse Ox 99 01/05/23 08:00 FiO2 Intake & Output 01/04/23 01/05/23 01/05/23 18:59 06:59 18:59 Other: # Voids 5 # Bowel Movements 1 - Exam GENERAL DESCRIPTION: An elderly male lying in bed in no distress RESPIRATORY SYSTEM: Unlabored breathing , decreased breath sounds at bases HEART: S1 S2 regular rate and rhythm , ABDOMEN: Soft , no tenderness EXTREMITIES: Left lower extremity did have some swelling dry scaly skin currently do not have any open wound or drainage - Labs CBC & Chem 7: 01/06/23 05:40 01/05/23 12:49 Labs: Abnormal Lab Results - Last 24 Hours (Table) 01/04/23 01/04/23 01/04/23 Range/Units 11:56 17:20 20:15 POC Glucose (mg/dL) 123 H 126 H 129 H (70-110) mg/dL Microbiology - Last 24 Hours (Table) 01/02/23 19:30 Blood Culture - Preliminary Blood 01/02/23 19:15 Blood Culture - Preliminary Blood Assessment and Plan (1) Cellulitis of foot Current Visit: Yes Status: Acute Code(s): L03.119 - CELLULITIS OF UNSPECIFIED PART OF LIMB SNOMED Code(s): 960727392 Plan: 1patient was in the hospital with a left lower extremity swelling and did have the wound to the left ankle area but the home care nurse concerning for possible worsening wound and need for debridement patient however do not have any open wound to the left ankle area did have mild swelling and bruising and dry scaly skin possible mild cellulitis however did have a predominantly swelling and patient did have lower extremity Doppler, that was negative for DVT 2patient to continue with apply moisturizing cream to the dry skin syndrome followed by Baudilio wrap to the leg to keep the swelling down 3patient to continue with the vancomycin pharmacy to dose with a plan to finish therapy with oral doxycycline Dictation was produced using [employer] dictation software. please excuse any grammatical, word or spelling errors. Time with Patient: Less than 30
--- NOTE | 2023-01-06 13:03 | P.PN ---
Subjective Progress Note Date: 01/06/23 Principal diagnosis: Left lower extremity cellulitis Patient is a 67-year male with a past medical history pertinent for diabetes mellitus hypertension atrial fibrillation patient did have a some superficial ulceration to the lower extremity and the patient was sent to the hospital by the home care nurse concerning for worsening wound and need for debridement On today's evaluation that is 01/06/2023, the patient continues to be febrile patient is breathing comfortably on room air, the patient denies having any chest pain shortness of breath or cough, the patient pain to the lower extremity has decreased in intensity and wound or any drainage Patient did have a white count is down to 11.8, creatinine 0.93 as of yesterday, vancomycin trough is 18.4, blood cultures so far negative Objective - Vital Signs Vital signs: Vital Signs Temp 98 F 01/06/23 07:42 Pulse 82 01/06/23 07:42 Resp 16 01/06/23 07:42 BP 112/69 01/06/23 07:42 Pulse Ox 100 01/06/23 07:42 FiO2 Intake & Output 01/05/23 01/06/23 01/06/23 18:59 06:59 18:59 Intake Total 635 Balance 635 Intake: Oral 635 Other: # Voids 3 1 - Exam GENERAL DESCRIPTION: An elderly male lying in bed in no distress RESPIRATORY SYSTEM: Unlabored breathing , decreased breath sounds at bases HEART: S1 S2 regular rate and rhythm , ABDOMEN: Soft , no tenderness EXTREMITIES: Left lower extremity did have some swelling dry scaly skin currently do not have any open wound or drainage - Labs CBC & Chem 7: 01/06/23 05:40 01/05/23 12:49 Labs: Abnormal Lab Results - Last 24 Hours (Table) 01/05/23 01/05/23 01/05/23 Range/Units 12:27 12:49 12:49 WBC (3.8-10.6) k/uL RBC (4.30-5.90) m/uL Hgb (13.0-17.5) gm/dL Hct (39.0-53.0) % RDW (11.5-15.5) % Neutrophils # (1.3-7.7) k/uL PT 17.7 H (9.0-12.0) sec INR 1.8 H (<1.2) BUN 26 H (9-20) mg/dL Glucose 68 L (74-99) mg/dL POC Glucose (mg/dL) 61 L (70-110) mg/dL Iron (65-175) UG/DL % Saturation (15.00-50.00) Vitamin B12 (200.0-944.0) pg/mL 01/05/23 01/05/23 01/05/23 Range/Units 12:49 12:49 12:49 WBC 14.4 H (3.8-10.6) k/uL RBC 2.71 L (4.30-5.90) m/uL Hgb 8.4 L (13.0-17.5) gm/dL Hct 26.6 L (39.0-53.0) % RDW 16.5 H (11.5-15.5) % Neutrophils # 9.5 H (1.3-7.7) k/uL PT (9.0-12.0) sec INR (<1.2) BUN (9-20) mg/dL Glucose (74-99) mg/dL POC Glucose (mg/dL) (70-110) mg/dL Iron 33 L (65-175) UG/DL % Saturation 7.71 L (15.00-50.00) Vitamin B12 1154.0 H (200.0-944.0) pg/mL 01/05/23 01/06/23 Range/Units 20:24 05:40 WBC 11.8 H (3.8-10.6) k/uL RBC 2.46 L (4.30-5.90) m/uL Hgb 7.8 L (13.0-17.5) gm/dL Hct 24.4 L (39.0-53.0) % RDW 17.6 H (11.5-15.5) % Neutrophils # 8.3 H (1.3-7.7) k/uL PT (9.0-12.0) sec INR (<1.2) BUN (9-20) mg/dL Glucose (74-99) mg/dL POC Glucose (mg/dL) 162 H (70-110) mg/dL Iron (65-175) UG/DL % Saturation (15.00-50.00) Vitamin B12 (200.0-944.0) pg/mL Microbiology - Last 24 Hours (Table) 01/02/23 19:30 Blood Culture - Preliminary Blood 01/02/23 19:15 Blood Culture - Preliminary Blood Assessment and Plan (1) Cellulitis of foot Current Visit: Yes Status: Acute Code(s): L03.119 - CELLULITIS OF UNSPECIFIED PART OF LIMB SNOMED Code(s): 380270184 Plan: 1patient was in the hospital with a left lower extremity swelling and did have the wound to the left ankle area but the home care nurse concerning for possible worsening wound and need for debridement patient however do not have any open wound to the left ankle area did have mild swelling and bruising and dry scaly skin possible mild cellulitis however did have a predominantly swelling and patient did have lower extremity Doppler, that was negative for DVT 2patient to continue with apply moisturizing cream to the dry skin syndrome followed by Baudilio wrap to the leg to keep the swelling down 3patient to continue with the vancomycin pharmacy to dose while inpatient with a plan to finish therapy with oral doxycycline 100 mg twice a day for 7 days prescription sent to the pharmacy Dictation was produced using [employer] dictation software. please excuse any grammatical, word or spelling errors. Time with Patient: Less than 30
[2023-01-06 13:39] LABS: INR 1.77 sec (0.93-1.11); Prothrombin Time 19.6 sec (9.9-11.9)
[2023-01-06 15:31] VITALS: BP 102/64; PULSE 74; TEMP 98.1
[2023-01-06] MEDS ORDERED: WARFARIN 3 MG TAB PO ONE (18:00)
--- NOTE | 2023-01-06 23:04 | P.DS ---
Providers Date of admission: 01/04/23 14:10 Attending physician: Marianne Finley Consults: 01/02/23 18:13 Consult Physician Routine Consulting Provider: Trey Clemente Consult Reason/Comments: L foot infection Do you want consulting provider notified?: Yes 01/03/23 11:15 Consult Physician Routine Consulting Provider: Ian Ramos Consult Reason/Comments: left foot infection Do you want consulting provider notified?: Yes 01/06/23 09:02 Consult Physician Routine Consulting Provider: Wanda Dorado Consult Reason/Comments: anemia Do you want consulting provider notified?: Yes Primary care physician: Joshua Reynolds Hospital Course: Diagnoses: Left foot cellulitis Macrocytic anemia Chronic atrial fibrillation on warfarin Clinic diastolic CHF Possible peripheral vascular disease Hospital course: This is a pleasant 67 years old male with multiple medical problems including history of chronic atrial fibrillation on anticoagulation with warfarin Presents with left foot cellulitis treated with IV antibiotic vancomycin with ID team followed closely. Vascular surgery recommended no need for surgical intervention and follow-up as an outpatient. Also social sciences department chair evaluated the patient and found him stable on many antihypertensive medications including Lasix, lisinopril, hydrochlorothiazide, metoprolol. Also the added farxiga (it was discontinued and I called the pharmacy and confirmed with it. I talked to the pharmacist. Patient is already on Janumet at home) However patient was found to be anemic with hemoglobin level 9.4, 7.3 and 8.4. Patient has evidence of iron deficiency anemia, I discussed the case with the bedside nurse Vick who confirmed to me that GI team saw the patient today with Sue Bowles and they did the patient for discharge and follow-up outpatient for endoscopy. When I saw the patient he confirmed to me that they cleared him for discharge to do upper and lower endoscopy as an outpatient. Patient himself told me that he does not want to do colonoscopy/EGD during this admission and he wanted with as an outpatient. Patient informed and he is aware with the risks of being on Coumadin and aspirin including but not limited to the risk of bleeding which could be excessive bleeding and/or and he verbalized understanding and acceptance continue with these 2 medications. Patient informed in details and will monitor for signs and symptoms of bleeding . Open his stable upon discharge. No active signs of bleeding. Patient is asymptomatic, no dizziness weakness, no chest pain or dyspnea. No change in urine or bowel habits. No fever. Gait is normal. PT/OT, recommended home. Patient was cleared for discharge by GI team, ID team and vascular surgery team. Problems and management plan were discussed with the patient and he verbalized u nderstanding and acceptance Patient was found stable and can be discharged home in guarded prognosis however he needs follow-up as an outpatient. Patient was instructed to follow up with PCP Dr. Reynolds within one week and patient agrees Patient instructed to follow up with Dr. Lance in one week Patient instructed to follow up with Dr. Ave KENT in 1-2 weeks and he agrees Patient was informed to follow up with Dr. Ramos in one week and he agrees to call and make an appointment. Patient be discharged on antibiotics as per ID team Physical exam Gen: patient is a AAOx3, no distress CVS: S1-S2, RRR, no murmur Lungs: B/L CTA, no wheezing Abdomen: soft, no distention, no tenderness, positive bowel sounds -Extremity: no leg edema or induration. Left foot slightly enlarged compared to the right side with slight warmth. No open wound. Scale and is improving Time spent more than 35 minutes Patient Condition at Discharge: Good Plan - Discharge Summary New Discharge Prescriptions: New Doxycycline Hyclate 100 mg PO Q12H 10 Days #20 tab Ferrous Sulfate [Iron (65 MG Elemental)] 325 mg PO BID-W/MEALS #60 tab Pantoprazole [Protonix] 40 mg PO DAILY #30 tab Acetaminophen Tab [Tylenol] 650 mg PO Q6HR PRN tab PRN Reason: Mild Pain Or Fever > 100.5 Continue polyethylene glycoL 3350 [Miralax] 17 gm PO DAILY PRN PRN Reason: Constipation Vitamin B Complex 1 cap PO HS Magnesium Oxide [Magnesium] 500 mg PO HS Thiamine HCl [Vitamin B-1] 250 mg PO DAILY gemfibroziL [Lopid] 600 mg PO BID Cetirizine HCl [Zyrtec] 10 mg PO HS Potassium Chloride [Klor-Con M10] 10 meq PO BID Warfarin [Coumadin] 2.5 mg PO MO@2100 Docusate [Colace] 100 mg PO DAILY Multivit-Min/FA/Lycopen/Lutein [Centrum Silver Tablet] 1 tab PO DAILY Cholecalciferol [Vitamin D3 (125 Mcg = 5000 Iu)] 125 mcg PO HS glipiZIDE XL [Glucotrol XL] 5 mg PO DAILY Lisinopril-Hctz 20-12.5 mg [Zestoretic 20-12.5] 1 tab PO HS Furosemide [Lasix] 40 mg PO DAILY Warfarin [Coumadin] 5 mg PO SUTUWETHFRSA@2100 Aspirin EC [Ecotrin Low Dose] 81 mg PO DAILY sitaGLIPtin PHOS/metFORMIN HCL [Janumet 50-1,000 mg Tablet] 1 tab PO DAILY metFORMIN HCL [Glucophage] 1,000 mg PO HS Metoprolol Tartrate [Lopressor] 75 mg PO BID Acarbose [Precose] 50 mg PO TID Discontinued glipiZIDE XL [Glucotrol XL] 2.5 mg PO HS No Action Super Beta Prostate Tablet 1 tab PO HS Elderberry Fruit [Elderberry] 350 mg PO HS Cinnamon Bark [Cinnamon] 500 mg PO BID Desiree C 500mg Tab 500 mg PO DAILY Qunol Hitesh Co Q 10 1 tab PO DAILY Saw Taberg 500 mg PO DAILY Goldenseal 400mg Capsule 1 cap PO HS [employer] 935mg 1 cap PO HS Echinacea 760mg Capsule 1 cap PO DAILY Discharge Medication List Acarbose [Precose] 50 mg PO TID 01/02/23 [History] Aspirin EC [Ecotrin Low Dose] 81 mg PO DAILY 01/02/23 [History] Cetirizine HCl [Zyrtec] 10 mg PO HS 01/02/23 [History] Cholecalciferol [Vitamin D3 (125 Mcg = 5000 Iu)] 125 mcg PO HS 01/02/23 [History] Cinnamon Bark [Cinnamon] 500 mg PO BID 01/02/23 [History] Docusate [Colace] 100 mg PO DAILY 01/02/23 [History] Echinacea 760mg Capsule 1 cap PO DAILY 01/02/23 [History] Elderberry Fruit [Elderberry] 350 mg PO HS 01/02/23 [History] Desiree C 500mg Tab 500 mg PO DAILY 01/02/23 [History] Furosemide [Lasix] 40 mg PO DAILY 01/02/23 [History] Goldenseal 400mg Capsule 1 cap PO HS 01/02/23 [History] Lisinopril-Hctz 20-12.5 mg [Zestoretic 20-12.5] 1 tab PO HS 01/02/23 [History] Magnesium Oxide [Magnesium] 500 mg PO HS 01/02/23 [History] Metoprolol Tartrate [Lopressor] 75 mg PO BID 01/02/23 [History] Multivit-Min/FA/Lycopen/Lutein [Centrum Silver Tablet] 1 tab PO DAILY 01/02/23 [History] Potassium Chloride [Klor-Con M10] 10 meq PO BID 01/02/23 [History] Qunol Hitesh Co Q 10 1 tab PO DAILY 01/02/23 [History] Saw Taberg 500 mg PO DAILY 01/02/23 [History] Super Beta Prostate Tablet 1 tab PO HS 01/02/23 [History] Thiamine HCl [Vitamin B-1] 250 mg PO DAILY 01/02/23 [History] Ultra [employer] 935mg 1 cap PO HS 01/02/23 [History] Vitamin B Complex 1 cap PO HS 01/02/23 [History] Warfarin [Coumadin] 2.5 mg PO MO@2100 01/02/23 [History] Warfarin [Coumadin] 5 mg PO SUTUWETHFRSA@2100 01/02/23 [History] gemfibroziL [Lopid] 600 mg PO BID 01/02/23 [History] glipiZIDE XL [Glucotrol XL] 5 mg PO DAILY 01/02/23 [History] metFORMIN HCL [Glucophage] 1,000 mg PO HS 01/02/23 [History] polyethylene glycoL 3350 [Miralax] 17 gm PO DAILY PRN 01/02/23 [History] sitaGLIPtin PHOS/metFORMIN HCL [Janumet 50-1,000 mg Tablet] 1 tab PO DAILY 01/02/23 [History] Acetaminophen Tab [Tylenol] 650 mg PO Q6HR PRN tab 01/06/23 [Rx] Doxycycline Hyclate 100 mg PO Q12H 10 Days #20 tab 01/06/23 [Rx] Ferrous Sulfate [Iron (65 MG Elemental)] 325 mg PO BID-W/MEALS #60 tab 01/06/23 [Rx] Pantoprazole [Protonix] 40 mg PO DAILY #30 tab 01/06/23 [Rx] Follow up Appointment(s)/Referral(s): Sabina Lance DO [STAFF PHYSICIAN] - As Needed Wanda Dorado MD [STAFF PHYSICIAN] - 02/19/23 2:15 pm (Please call and make appointment for follow-up for anemia, recommend outpatient endoscopy in [place]) [facility], [NON-STAFF] - 1 Week Joshua Reynolds MD [Primary Care Provider] - 1-2 days Ian Ramos MD [STAFF PHYSICIAN] - 1 Week Patient Instructions/Handouts: Cellulitis (ED) Activity/Diet/Wound Care/Special Instructions: Patient instructed to follow up with outpatient wound clinic, he will get refer ral from PCP for [facility] Calamine lotion to wounds, Moisturizing lotion to other dry skin. then wrap with Kerlix. change BID and PRN heart healthy diet activity is restricted till you see your doctor we recommend to check your glucose 4 times per day, before each meal and at bed time, keep the results in a log book and bring it to your doctor on your appointment date if your glucose is less than 70 or more than 400 then call 911 and come to emergency room Discharge Disposition: HOME WITH HOME HEALTH SERVICES
--- NOTE | 2023-01-07 18:11 | CDI ---
Documentation Clarification Form Date: 01/07/2023 06:04:00 PM From: Terry Huddleston Phone: Admit Date: 01/04/2023 02:10:00 PM Patient Name: Mike Nagy Visit Number: [id number] Discharge Date: 01/06/2023 05:23:00 PM ATTENTION: The Clinical Documentation Specialists (CDI) and [facility] Coding Staff appreciate your assistance in clarifying documentation. Please respond to the clarification below the line at the bottom and electronically sign. The CDI & [facility] Coding staff will review the response and follow-up if needed. Please note: Queries are made part of the Legal Health Record. If you have any questions, please contact the author of this message via ITS. Dr. Marianne Finley Cellulitis is documented ED note and progress note 01/06. Patient also has a history of DM Additional clarification regarding the type of cellulitis is requested. History/risk factors: Clinical Indicators: Treatment: Please clarify the etiology of the cellulitis, if known: [ ] Cellulitis is a diabetic skin complication [ ] Cellulitis is not a diabetic skin complication [ ] Other, please specify: [ ] Unable to determine MTDD
== END 2023-01-06 17:23 | disposition home health service (06) | DRG 603 ==
LOC: EC 13:19 → SUPCPDRO 13:19 → 6NMEDSUR 18:13 → OBSVTOIN 01-04 14:10
PROVIDERS: ADMIT Hospitalist; ATTEND Hospitalist
DX: L03.116 Cellulitis of left lower limb (principal); I48.20 Chronic atrial fibrillation, unspecified; I50.32 Chronic diastolic (congestive) heart failure; L97.329 Non-pressure chronic ulcer of left ankle with unspecified severity; D50.9 Iron deficiency anemia, unspecified; I44.7 Left bundle-branch block, unspecified; I87.2 Venous insufficiency (chronic) (peripheral); E11.621 Type 2 diabetes mellitus with foot ulcer; I11.0 Hypertensive heart disease with heart failure; I73.9 Peripheral vascular disease, unspecified; Z68.37 Body mass index [BMI] 37.0-37.9, adult; L29.9 Pruritus, unspecified; L97.529 Non-pressure chronic ulcer of other part of left foot with unspecified severity; Z71.6 Tobacco abuse counseling; E66.9 Obesity, unspecified; Z79.01 Long term (current) use of anticoagulants; Z79.82 Long term (current) use of aspirin; Z79.84 Long term (current) use of oral hypoglycemic drugs; Z79.899 Other long term (current) drug therapy
CPT/HCPCS: 36415; 80048; 80053; 80202; 82565; 82607; 82728; 82746; 83540; 83550; 83605; 85025; 85610; 86140; 87040; 96361; 96365; 99284